=== PATIENT | female | born 1965 | race Caucasian/White ===

== ENCOUNTER 2020-07-13 08:08 | Outpatient (REF) | payer OTHER, SELFPAY ==
[2020-07-13 08:54] LABS: Hematocrit 41.1 % (37-47); Hemoglobin 13.2 g/dl (12.0-16.0)
[2020-07-13 09:15] LABS: Cholesterol 175 mg/dL; Glucose Fasting 80 mg/dL (60-99); HDL Cholesterol 82 mg/dL; LDL Cholesterol Calculated 81 mg/dl; Triglycerides 60 mg/dL
[2020-07-13 09:31] LABS: TSH reflex Free T4 2.42 uIU/mL (0.32-4.0)
[2020-07-13 10:03] LABS: Vitamin B12 398 pg/mL (200-900)
== END 2020-07-13 08:09 | disposition home or self-care (01) ==
LOC: HO.LAB 08:08
PROVIDERS: PCP Internal Medicine; Visit Provider Internal Medicine
DX: Z00.01 Encounter for general adult medical examination with abnormal findings (principal); R19.7 Diarrhea, unspecified; E03.9 Hypothyroidism, unspecified
CPT/HCPCS: 36415; 80061; 82607; 82947; 84443; 85014; 85018

== ENCOUNTER 2020-11-06 08:14 | Outpatient (REF) | payer OTHER, SELFPAY ==
[2020-11-09 15:12] LABS: HPV mRNA E6/E7 rflx Not Detected (Not Detected)
== END 2020-11-06 08:15 | disposition home or self-care (01) ==
LOC: HO.LAB 08:14
PROVIDERS: PCP Internal Medicine; Visit Provider Advanced Practice Midwife
DX: Z01.411 Encounter for gynecological examination (general) (routine) with abnormal findings (principal); Z11.51 Encounter for screening for human papillomavirus (HPV); N95.2 Postmenopausal atrophic vaginitis
CPT/HCPCS: 87624; 88142

== ENCOUNTER 2020-12-25 11:17 | Outpatient (REF) | payer OTHER, SELFPAY ==
--- NOTE | ~2020-12-25 | MM_ITS ---
EXAMINATION: MM SCREENING DIGITAL BREAST TOMOSYNTHESIS, BILATERAL CLINICAL INFORMATION: Screening. Asymptomatic. The lifetime risk of breast cancer based on the Tyrer-Cuzick Model is 6%. COMPARISON: Mammography: 07/07/2015 TECHNIQUE: Digital breast tomosynthesis is performed in both the craniocaudal and mediolateral oblique views along with computer-aided detection (CAD). Synthesized 2D images are generated from the tomosynthesis. FINDINGS: The breasts are heterogeneously dense, which may obscure small masses (ACR BI-RADS breast composition Category c). There are no significant masses, abnormal calcifications, or other abnormalities. The axilla and skin contours are unremarkable. No significant changes. MM/MM tomosynthesis screening BI IMPRESSION: No mammographic evidence of malignancy. ASSESSMENT: BI-RADS 1: Negative RECOMMENDATION: Routine annual mammography screening. This patient's information was entered into a reminder system with a target due date for their next mammogram.
== END 2020-12-25 11:18 | disposition home or self-care (01) ==
LOC: HO.MAMMO 11:17
PROVIDERS: Visit Provider Advanced Practice Midwife
DX: Z12.31 Encounter for screening mammogram for malignant neoplasm of breast (principal)
CPT/HCPCS: 77063; 77067

== ENCOUNTER 2021-08-03 07:34 | Outpatient (REF) | payer OTHER, SELFPAY ==
[2021-08-03 07:50] LABS: MANUAL DIFF FLAG NO
[2021-08-03 08:04] LABS: Basophils Percent Auto 0.6 % (0-2); Eosinophils Absolute Auto 0.1 X10*3/uL (0.0-0.4); Eosinophils Percent Auto 1.8 % (0-4); Hematocrit 39.3 % (37.0-47.0); Hemoglobin 12.8 g/dl (12.0-16.0); Imm Gran Abs Auto 0.02 X10*3/uL (0.00-0.03); Imm Gran Pct Auto 0.3 % (0.0-0.4); Lymphocytes Absolute Auto 1.7 X10*3/uL (1.2-4.9); Lymphocytes Percent Auto 24.5 % (20-40); Mean Corpuscular HGB Conc 32.6 g/dl (31.0-35.0); Mean Corpuscular Hemoglobin 29.4 pg (27.0-33.0); Mean Corpuscular Volume 90.3 fL (80.0-98.0); Mean Platelet Volume 9.7 fL (9.4-12.3); Monocytes Absolute Auto 0.6 X10*3/uL (0.1-1.2); Monocytes Percent Auto 8.3 % (2-11); Neutrophils Absolute Auto 4.4 x10*3/uL (2.0-8.3); Neutrophils Percent Auto 64.5 % (45-73); Platelet Count 173 X10*3/uL (160-400); Red Blood Count 4.35 X10*6/uL (4.20-5.50); Red Cell Distribution Width 12.2 % (11.0-16.0); White Blood Count 6.8 X10*3/uL (4.8-10.8)
[2021-08-03 08:35] LABS: Alanine Aminotransferase 13 U/L (0-31); Albumin Level 4.2 g/dL (3.5-5.0); Alkaline Phosphatase 92 U/L (39-117); Anion Gap 9 (12-20); Aspartate Amino Transferase 20 U/L (5-31); Bilirubin Total 0.5 mg/dL (0.0-1.0); Blood Urea Nitrogen 18 mg/dL (9-16); Calcium 9.9 mg/dL (8.4-10.2); Carbon Dioxide 31 mmol/L (22-29); Chloride 105 mmol/L (96-108); Cholesterol 153 mg/dL; Estimated Glomerular Filt Rate > 60; Glucose Fasting 98 mg/dL (60-99); HDL Cholesterol 69 mg/dL; LDL Cholesterol Calculated 74 mg/dl; Potassium 5.1 mmol/L (3.3-5.1); Sodium 140 mmol/L (135-145); Total Protein 6.9 g/dL (6.5-8.0); Triglycerides 50 mg/dL
[2021-08-03 08:48] LABS: TSH reflex Free T4 3.51 uIU/mL (0.32-4.0)
== END 2021-08-03 07:35 | disposition home or self-care (01) ==
LOC: HO.LAB 07:34
PROVIDERS: PCP Internal Medicine; Visit Provider Internal Medicine
DX: Z00.01 Encounter for general adult medical examination with abnormal findings (principal); E03.9 Hypothyroidism, unspecified; G43.909 Migraine, unspecified, not intractable, without status migrainosus
CPT/HCPCS: 36415; 80053; 80061; 84443; 85025

== ENCOUNTER 2022-02-22 08:06 | Outpatient (REF) | payer OTHER, SELFPAY ==
--- NOTE | ~2022-02-22 | MM_ITS ---
EXAMINATION: MM SCREENING DIGITAL BREAST TOMOSYNTHESIS, BILATERAL CLINICAL INFORMATION: Screening. Asymptomatic. The lifetime risk of breast cancer based on the Tyrer-Cuzick Model is 5%. COMPARISON: Mammography: 12/25/2020, 07/07/2015 TECHNIQUE: Digital breast tomosynthesis is performed in both the craniocaudal and mediolateral oblique views along with computer-aided detection (CAD). Synthesized 2D images are generated from the tomosynthesis. FINDINGS: The breasts are heterogeneously dense, which may obscure small masses (ACR BI-RADS breast composition Category c). There are no significant masses, abnormal calcifications, or other abnormalities. No architectural abnormality. The axilla are unremarkable. No significant changes from prior studies. MM/MM tomosynthesis screening BI IMPRESSION: No mammographic evidence of malignancy. ASSESSMENT: BI-RADS 1: Negative RECOMMENDATION: Routine annual mammography screening. This patient's information was entered into a reminder system with a target due date for their next mammogram.
== END 2022-02-22 08:07 | disposition home or self-care (01) ==
LOC: HO.MAMMO 08:06
PROVIDERS: Visit Provider Advanced Practice Midwife
DX: Z12.31 Encounter for screening mammogram for malignant neoplasm of breast (principal)
CPT/HCPCS: 77063; 77067

== ENCOUNTER 2022-03-22 08:03 | Outpatient (REF) | payer OTHER, SELFPAY ==
[2022-03-24 18:24] LABS: HPV mRNA E6/E7 rflx Not Detected (Not Detected)
== END 2022-03-22 08:04 | disposition home or self-care (01) ==
LOC: HO.LNP 08:03
PROVIDERS: PCP Internal Medicine; Visit Provider Advanced Practice Midwife
DX: Z01.419 Encounter for gynecological examination (general) (routine) without abnormal findings (principal); Z11.51 Encounter for screening for human papillomavirus (HPV); N95.1 Menopausal and female climacteric states
CPT/HCPCS: 87624; 88142

== ENCOUNTER 2022-07-29 08:45 | Outpatient (REF) | payer OTHER, SELFPAY ==
[2022-07-29 12:08] LABS: TSH reflex Free T4 2.01 uIU/mL (0.32-4.0)
[2022-07-29 12:12] LABS: Alanine Aminotransferase 18 U/L (0-31); Albumin Level 4.1 g/dL (3.5-5.0); Alkaline Phosphatase 120 U/L (39-117); Anion Gap 10 (12-20); Aspartate Amino Transferase 29 U/L (5-31); Bilirubin Total 0.4 mg/dL (0.0-1.0); Blood Urea Nitrogen 20 mg/dL (9-16); Calcium 9.2 mg/dL (8.4-10.2); Carbon Dioxide 26 mmol/L (22-29); Chloride 110 mmol/L (96-108); Estimated Glomerular Filt Rate > 60; Glucose Random 82 mg/dL (60-115); Potassium 4.3 mmol/L (3.3-5.1); Sodium 142 mmol/L (135-145); Total Protein 6.8 g/dL (6.5-8.0)
== END 2022-07-29 08:46 | disposition home or self-care (01) ==
LOC: HO.HMGCLDS 08:45
PROVIDERS: PCP Internal Medicine; Visit Provider Internal Medicine
DX: Z00.01 Encounter for general adult medical examination with abnormal findings (principal); E03.9 Hypothyroidism, unspecified; G43.909 Migraine, unspecified, not intractable, without status migrainosus
CPT/HCPCS: 36415; 80053; 84443

== ENCOUNTER 2023-03-21 07:27 | Outpatient (REF) | payer OTHER, SELFPAY ==
--- NOTE | ~2023-03-21 | MM_ITS ---
EXAMINATION: MM SCREENING DIGITAL BREAST TOMOSYNTHESIS, BILATERAL CLINICAL INFORMATION: Screening. Asymptomatic. COMPARISON: Mammography: This study is compared with prior exams dating back to 2018. TECHNIQUE: Digital breast tomosynthesis is performed in both the craniocaudal and mediolateral oblique views along with computer-aided detection (CAD). Synthesized 2D images are generated from the tomosynthesis. FINDINGS: The breasts are extremely dense, which lowers the sensitivity of mammography (ACR BI-RADS breast composition Category d). There are no significant masses, abnormal calcifications, or other abnormalities. MM/MM tomosynthesis screening BI IMPRESSION: No mammographic evidence of malignancy. ASSESSMENT: BI-RADS BI-RADS 1 - Negative RECOMMENDATION: Routine annual mammography screening. 1 year F/U This examination should not preclude the clinical evaluation of a suspicious palpable abnormality. This patient's information was entered into a reminder system with a target due date for their next mammogram.
== END 2023-03-21 07:28 | disposition home or self-care (01) ==
LOC: HO.MAMMO 07:27
PROVIDERS: PCP Internal Medicine; Visit Provider Advanced Practice Midwife
DX: Z12.31 Encounter for screening mammogram for malignant neoplasm of breast (principal)
CPT/HCPCS: 77063; 77067

== ENCOUNTER → 2023-03-21 07:45 | Outpatient (BNV) | payer OTHER, SELFPAY | PROVIDERS: PCP Internal Medicine; Visit Provider Radiology Diagnostic Radiology | DX: Z12.31 Encounter for screening mammogram for malignant neoplasm of breast (principal) | CPT/HCPCS: 77063; 77067 ==

== ENCOUNTER 2023-03-28 07:42 | Outpatient (AMB) | payer OTHER, SELFPAY ==
--- NOTE | 2023-03-28 07:51 | A.OFFVIS_ITS ---
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 She is doing well with no concerns. Using Estrace, wants to continue. Attempting to eat a healthy diet with calcium and vitamin D and stays active with exercise. Currently sexually active. Denies any vaginal dryness or irritation. Last pap smear; 2022. Last mammogram; pending. Colonoscopy is UTD. Denies any family history of breast, ovarian or colon cancer. [facility] Medical History IBS (irritable bowel syndrome) Hx of migraine headaches Hypothyroid Cecal volvulus Surgical History H/O inguinal hernia repair H/O knee surgery Family History Sister Multiple sclerosis Social History Housing: House Alcohol intake: current Alcohol intake frequency: a few times a week Patient Tobacco Use Status: Never used Tobacco e-Cigarette/Vaping Use: Never Used Current occupational status: employed Cognitive needs: No Hearing needs: No Vision needs: Yes Female Reproductive History Menstrual Age of Menarche: 10 Total pregnancies: 0 Date of last pap smear: 03/22/22 Date of Mammogram: 03/21/23 Review of Systems Const All systems reviewed & are unremarkable except as noted in HPI and below Reports as per HPI Eyes Reports no additional complaints ENT Reports no additional complaints Card Reports no additional complaints Resp Reports no additional complaints GI Reports as per HPI and Reports no additional complaints Reports as per HPI Musc Reports no additional complaints Skin/Breast Reports as per HPI Neuro Reports no additional complaints Psych Reports no additional complaints Endo Reports no additional complaints Tom/Lymph Reports no additional complaints Aller/Immun Reports no additional complaints Physical Exam Vital Signs: Last Vital Signs BP 106/60 03/28/23 08:00 BMI result Body Mass Index 17.0 Const General: cooperative, healthy appearing, no acute distress, well developed and alert Orientation/consciousness: patient oriented x3 HEENT Head: Yes normal to inspection Eyes General: appearance normal, both eyes and all related structures Neck Neck: Yes normal visual inspection Thyroid: Thyroid normal Chest Chest palpation & inspection: normal inspection of the chest and other (no puckering, dimpling, peau de orange, retraction, discharge, masses) Breast/axilla inspection: normal inspection of the breasts Breast/axilla palpation: normal palpation of the breasts Resp Effort & Inspection: normal respiratory effort GI Inspection: Yes normal to inspection Palpation (GI): Soft to palpation Rectal Exam - Female: deferred General: Yes bladder normal to palpation External Female Exam: normal external appearance and normal appearance of the urethra Speculum Exam - Vagina: normal appearance of the vagina, normal palpation and normal vaginal discharge Speculum Exam - Cervix: normal appearance of the cervix and normal palpation Bimanual exam- vagina & uterus: normal bimanual exam, normal palpation, uterine size normal, bladder normal to palpation, normal palpation and non-tender Bimanual Exam- Adnexa, other: no masses Skin General skin exam: no rashes or lesions noted Rashes: no rashes Neuro General: patient oriented x3 Cognition (Neuro): normal cognition Extrem General: Yes normal to inspection Psych Attitude: cooperative Thought process: Normal thought process present Assessment & Plan Assessment & Plan (1) Encounter for well woman exam with routine gynecological exam: Code(s): Z01.419 - Encounter for gynecological examination (general) (routine) without abnormal findings Plan Discussed: Current recommendations for pap smears per ASCCP guidelines. Breast awareness, periodic self breast exams and yearly mammogram. Maintain a healthy lifestyle, well balanced diet. Vaginal estrogen-risks/benefits, breast cancer risks/warnings. Contact the office with any postmenopausal bleeding. All of her questions and concerns were addressed to the best of my ability. RTO in 1 year for annual form tamper operator exam. This note is constructed using voice recognition software. While every effort has been made to ensure accuracy, safety sealer errors may have been included. Medications: Refilled estradiol 0.01%(0.1mg/gram) 1 g vaginal 2XW 90 days 42.5 grams 2RF Coding Level of Care Code Est Pt Prev Care 40-64y(39555) Diagnoses Encounter for well woman exam with routine gynecological exam Z01.419
[2023-03-28 08:00] VITALS: BP 106/60; BMI 17.0
== END 2023-03-28 08:27 | disposition home or self-care (01) ==
PROVIDERS: Visit Provider Advanced Practice Midwife
DX: Z01.419 Encounter for gynecological examination (general) (routine) without abnormal findings (principal)
CPT/HCPCS: 99396

== ENCOUNTER → 2023-03-28 07:42 | Outpatient (BNVA) | payer OTHER, SELFPAY | PROVIDERS: Visit Provider Advanced Practice Midwife ==

== ENCOUNTER 2023-06-06 15:22 | Outpatient (AMB) | payer OTHER, SELFPAY ==
[2023-06-06 15:59] VITALS: BP 100/60; PULSE 87; O2SAT 98
--- NOTE | 2023-06-06 15:59 | AM.OFFWIN_ITS ---
Intake Vital Signs 06/06/23 15:59 Height 5 ft 2 in BP 100/60 Blood Pressure Location Lt brachial Position Sitting Pulse 87 Pulse Source Pulse Oximeter Pulse Oximetry (%) 98 Oxygen Delivery Method Room Air Intake Visit Reasons: EP LT side injury due to fall Intake Note: pt is here for c/o left side pain due to fall yesterday Patient Tobacco Use Status: Never used Tobacco Allergies LOBSTER Allergy (Intermediate, Uncoded 06/06/23 15:59) HIVES-TACTILE EXPOSURE lobster juice Allergy (Unknown, Uncoded 06/06/23 15:59) hives Lobster juice Adverse Reaction (Unknown, Uncoded 06/06/23 15:59) hives Do you need a note to return to daycare/school/sports/work: No HPI HPI Comments History of Present Illness Details 57 y/o female patient who presents to hospital for special surgery walk in clinic for left sided flank pain after suffering a fall at home 2 days ago. Pt tripped on fell landing on the ground. Denies LOC. She has been wearing a corset which has been helping with pain relief. Denies SOB, CP or Wheezing. PFSH Medical History IBS (irritable bowel syndrome) Hx of migraine headaches Hypothyroid Cecal volvulus Surgical History H/O inguinal hernia repair H/O knee surgery Family History Sister Multiple sclerosis Social History Housing: House Alcohol intake: current Alcohol intake frequency: a few times a week Patient Tobacco Use Status: Never used Tobacco e-Cigarette/Vaping Use: Never Used Current occupational status: employed Cognitive needs: No Hearing needs: No Vision needs: Yes Female Reproductive History Menstrual Age of Menarche: 10 Review of Systems Const All systems reviewed & are unremarkable except as noted in HPI and below Physical Exam Vital Signs: Last Vital Signs Pulse 87 06/06/23 15:59 BP 100/60 06/06/23 15:59 Pulse Ox 98 06/06/23 15:59 Oxygen Delivery Method Room Air 06/06/23 15:59 Const General: comfortable and no acute distress Nutritional Appearance: malnourished Orientation/consciousness: patient oriented x3 Chest Chest palpation & inspection: tenderness rib (Between the 7th and 8th ribs left) GI Inspection: Yes normal to inspection Palpation (GI): Soft to palpation (Flat very thin, Able to palpate rib cage) and No hepatosplenomegaly present Auscultation: normal bowel sounds Neuro General: patient oriented x3 Assessment & Plan Assessment & Plan (1) Left flank pain: Code(s): R10.9 - Unspecified abdominal pain Plan: - IceHot - Acetaminophen or Ibuprofen for pain relief - May continue to wear the Corset - RTC if not better. Coding Level of Care Code Est Pt Level 3 (71916) Diagnoses Left flank pain R10.9 Time Spent (min) 15
== END 2023-06-06 16:38 | disposition home or self-care (01) ==
PROVIDERS: PCP Internal Medicine; Visit Provider Nurse Practitioner Family
DX: R10.9 Unspecified abdominal pain (principal)
CPT/HCPCS: 99213

== ENCOUNTER 2023-07-11 08:31 | Outpatient (AMB) | payer OTHER, SELFPAY ==
[2023-07-11 08:32] VITALS: BP 106/62; PULSE 72; O2SAT 100; BMI 17.3
--- NOTE | 2023-07-11 08:32 | A.OFFPC_ITS ---
Vital Signs 07/11/23 08:32 Height 5 ft 2 in Weight 94 lb 6 oz BMI 17.3 BP 106/62 Blood Pressure Location Rt brachial Position Sitting Pulse 72 Pulse Source Pulse Oximeter Pulse Oximetry (%) 100 Oxygen Delivery Method Room Air Intake Visit Reasons: PE Allergies LOBSTER Allergy (Intermediate, Uncoded 06/06/23 15:59) HIVES-TACTILE EXPOSURE lobster juice Allergy (Unknown, Uncoded 06/06/23 15:59) hives Lobster juice Adverse Reaction (Unknown, Uncoded 06/06/23 15:59) hives Medication List - Last Reconciled 07/11/23 by Elinor Ch MD caffeine 200 mg PO BID PRN cyclobenzaprine 5 mg PO ONCE PRN 30 days estradiol 0.01%(0.1mg/gram) 1 g vaginal 2XW 90 days ibuprofen 200 mg PO Q6H PRN levothyroxine (Euthyrox) 88 mcg PO DAILY 90 days sumatriptan succinate 25 mg PO DAILY PRN 30 days Tobacco use date assessed: 07/11/23 Dental Screening Dental Screen Date: 07/11/23 Did you have a dental visit in the last 12 months?: Yes Did you have a dental problem in the last 6 months where you did not have access to dental care?: No Was dental information given to patient?: Patient has dentist HPI PE HPI Details Patient is a 57-year-old female came in today for her yearly physical exam Patient want to talk about couple of problems today She says that at time she feels short of breath when she is active, she has a [place] family history of emphysema She would like to have a pulmonary function test, which I have ordered for her Patient has no history of smoking She also have slight malalignment of her knee joint with her hip joint Patient says that at times when she is walking her ankle gives in and she falls. She tells me that she has a history of recurrent falls in the past. She has never been evaluated by Orthopedic, I have placed a referral. Mammogram March of this year [facility], Pap smear and breast exam through them.? Colonoscopy September of 2019.? Due for labs order placed Continue levothyroxine 88 mcg for hypothyroidism Migraine headaches:? Stable with sumatriptan 25 mg as needed.? [facility] Medical History IBS (irritable bowel syndrome) Hx of migraine headaches Hypothyroid Cecal volvulus Surgical History H/O inguinal hernia repair H/O knee surgery Family History Sister Multiple sclerosis Social History Housing: House Alcohol intake: current Alcohol intake frequency: a few times a week Patient Tobacco Use Status: Never used Tobacco e-Cigarette/Vaping Use: Never Used service: No Current occupational status: employed Cognitive needs: No Hearing needs: No Vision needs: Yes Female Reproductive History Menstrual Age of Menarche: 10 Questionnaire PHQ-9 Over the last 2 weeks, how often have you been bothered by any of the following problems? 1. Little interest or pleasure in doing things: not at all 2. Feeling down, depressed, or hopeless: not at all 3. Trouble falling or staying asleep, or sleeping too much: not at all 4. Feeling tired or having little energy: not at all 5. Poor appetite or overeating: not at all 6. Feeling bad about yourself - or that you are a failure or have let yourself or your family down: not at all 7. Trouble concentrating on things, such as reading the newspaper or watching television: not at all 8. Moving or speaking so slowly that other people could have noticed. Or the opposite - being so fidgety or restless that you have been moving around a lot more than usual: not at all 9. Thoughts that you would be better off or of hurting yourself in some way: not at all Total score: 0 Depression Screening Interpretation: Negative Depression Screening Done: Yes 82816 - PHQ-9 Billing: Yes Source: Developed by Drs. John Yancey, Katerina Almaguer, Phil Brooks and colleagues, with an educational arleen from [employer]. Thrive Questionnaire Date Thrive assessed: 07/05/22 AUDIT C Alcohol Use Questionnaire (AUDIT-C) 1. How often do you have a drink containing alcohol?: Monthly or less 2. How many drinks containing alcohol do you have on a typical day when you are drinking?: 1 or 2 3. How often do you have six or more drinks on one occasion?: Never Total Score: 1 Score Reviewed/Action Taken: Yes SONIA-7 AMB Questionnaire SONIA-7 Date SONIA - 7 assessed: 07/05/22 Source: Developed by Drs. John Yancey, Katerina Almaguer, Phil Brooks and colleagues, with an educational arleen from [employer]. Review of Systems Const Denies chills, Denies fever(s) and Denies headache(s) Eyes Denies blurry vision ENT Denies headache(s), Denies nasal discharge, Denies nasal obstruction, Denies odynophagia and Denies sinus pain Card Denies chest pain at rest and Denies chest pain with activity Resp Denies cough and Denies hemoptysis GI Denies diarrhea, Denies odynophagia, Denies vomiting and Denies hematemesis Reports as per HPI Musc Denies abnormal gait Skin/Breast Reports as per HPI Neuro Denies Neuro-related abnormal movements, Denies Abnormal speech present, Denies abnormal gait, Denies headache(s) and Denies Sensory deficit (Neuro) Psych Denies mood swings and Denies paranoia Endo Reports as per HPI Tom/Lymph Reports as per HPI Aller/Immun Reports as per HPI Physical exam (Primary Care) Vital Signs: Last Vital Signs Pulse 72 07/11/23 08:32 BP 106/62 07/11/23 08:32 Pulse Ox 100 07/11/23 08:32 Oxygen Delivery Method Room Air 07/11/23 08:32 BMI result Body Mass Index 17.3 Tobacco/Smoking Status: Tobacco use Status Tobacco use date assessed 07/11/23 07/11/23 08:39 Patient Tobacco Use Status Never used Tobacco 07/11/23 08:38 e-Cigarette/Vaping Use Never Used 07/11/23 08:38 Depression Screening Interpretation: Negative Thrive Assessment: Date of Thrive Assessment Date Thrive assessed 07/05/22 07/11/23 08:38 Const General: cooperative, comfortable and no acute distress Orientation/consciousness: patient oriented x3 HENMT Head: Yes normocephalic and Yes atraumatic Eyes General: appearance normal, both eyes and all related structures Pupils: Equal, round and reactive pupils present EOM: EOMs intact bilaterally Neck Neck: Yes supple and No lymphadenopathy Thyroid: Thyroid normal Lymphatic: no lymphadenopathy noted Resp Effort & Inspection: normal respiratory effort and able to speak in complete sentences Auscultation: clear to auscultation bilaterally Cardio Heart sounds: S1 normal heart sound present and S2 normal heart sound present GI Palpation (GI): Soft to palpation and nontender Auscultation: normal bowel sounds General: Yes no CVA tenderness Back/Spine/Pelvis Back: no CVA tenderness Skin General skin exam: elasticity normal and turgor normal Neuro General: patient oriented x3 and gait normal Cranial nerves: Yes Equal, round and reactive pupils present Speech: No Abnormal speech present Sensory Exam: No Sensory deficit (Neuro) Coordination: tandem gait normal and Romberg test negative Extrem Other: Knee joint rotated inwards when patient is standing straight General: Yes normal exam except as noted and No edema Immunizations Boostrix Tdap 2.5 Lf unit-8 mcg-5 Lf/0.5 mL intramuscular syringe Performing Provider: Elinor Ch MD Performing Location: [facility] Administered by: Julio C Verdugo CMA on 07/11/23 09:02 Dose Route Admin Location Dispensed Lot Number Expiration Date NDC Glass Worker 0.5 mL IM Left Deltoid 0.5 mL [id number] 09/03/25 02593-800-30 [employer] VIS Given Date VIS Provided VIS Publication Date 07/11/23 Single Vaccine 20 Eligibility Eligibility Date Funding Source Not [facility] Eligible 07/11/23 Private Assessment and Plan Assessment & Plan (1) Encounter for general adult medical examination with abnormal findings: Code(s): Z00.01 - Encounter for general adult medical examination with abnormal findings (2) Ankle instability: Code(s): M25.373 - Other instability, unspecified ankle Qualifiers: Laterality: right Qualified Code(s): M25.371 - Other instability, right ankle (3) Shortness of breath: Code(s): R06.02 - Shortness of breath (4) Hypothyroidism: Code(s): E03.9 - Hypothyroidism, unspecified Qualifiers: Hypothyroidism type: other Qualified Code(s): E03.8 - Other specified hypothyroidism (5) Migraine headache: Code(s): G43.909 - Migraine, unspecified, not intractable, without status migrainosus Qualifiers: Intractability: intractable Migraine type: unspecified Status migrainosus presence: without status migrainosus Qualified Code(s): G43.919 - Migraine, unspecified, intractable, without status migrainosus (6) Family history of emphysema: Code(s): Z82.5 - Family history of asthma and other chronic lower respiratory diseases (7) Immunizations incomplete: Code(s): Z28.39 - Other underimmunization status Plan Patient is a 57-year-old female came in today for her yearly physical exam Patient want to talk about couple of problems today She says that at time she feels short of breath when she is active, she has a strong family history of emphysema She would like to have a pulmonary function test, which I have ordered for her Patient has no history of smoking She also have slight malalignment of her knee joint with her hip joint Patient says that at times when she is walking her ankle gives in and she falls. She tells me that she has a history of recurrent falls in the past. She has never been evaluated by Orthopedic, I have placed a referral. Mammogram March of this year [facility], Pap smear and breast exam through them.? Colonoscopy September of 2019.? Due for labs order placed Continue levothyroxine 88 mcg for hypothyroidism Migraine headaches:? Stable with sumatriptan 25 mg as needed.? Orders: Orders Complete Blood Count Auto Diff Today E03.9 - Hypothyroidism, unspecified, G43.909 - Migraine, unspecified, not intractable, without status migrainosus, Z00.01 - Encounter for general adult medical examination with abnormal findings Lipid Panel Today E03.9 - Hypothyroidism, unspecified, G43.909 - Migraine, unspecified, not intractable, without status migrainosus, Z00.01 - Encounter for general adult medical examination with abnormal findings PFT pulmonary function test Today R06.02 - Shortness of breath, Z82.5 - Family history of asthma and other chronic lower respiratory diseases TDaP Immunization Today Z23 - Encounter for immunization Comprehensive [place]. Panel Fast Today E03.9 - Hypothyroidism, unspecified, G43.909 - Migraine, unspecified, not intractable, without status migrainosus, Z00.01 - Encounter for general adult medical examination with abnormal findings TSH reflex Free T4 Today E03.9 - Hypothyroidism, unspecified, G43.909 - Migraine, unspecified, not intractable, without status migrainosus, Z00.01 - Encounter for general adult medical examination with abnormal findings Referrals Orthopedics Referral M25.373 - Other instability, unspecified ankle Coding Level of Care Code Est Pt Level 4 (17631) Est Pt Prev Care 40-64y(85231) Diagnoses Encounter for general adult medical examination with abnormal findings Z00.01 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
== END 2023-07-11 09:02 | disposition home or self-care (01) ==
PROVIDERS: Visit Provider Internal Medicine
DX: Z00.01 Encounter for general adult medical examination with abnormal findings (principal); M25.371 Other instability, right ankle; R06.02 Shortness of breath; Z23 Encounter for immunization; E03.8 Other specified hypothyroidism; G43.919 Migraine, unspecified, intractable, without status migrainosus; Z82.5 Family history of asthma and other chronic lower respiratory diseases; Z28.39 Other underimmunization status
CPT/HCPCS: 90471; 90715; 99214; 99396

== ENCOUNTER 2023-07-17 06:48 | Outpatient (REF) | payer OTHER, SELFPAY ==
[2023-07-17 07:05] LABS: MANUAL DIFF FLAG NO
[2023-07-17 07:15] LABS: Basophils Absolute Auto 0.1 X10*3/uL (0.0-0.2); Basophils Percent Auto 0.9 % (0-2); Eosinophils Absolute Auto 0.2 X10*3/uL (0.0-0.4); Eosinophils Percent Auto 2.9 % (0-4); Hematocrit 39.1 % (37.0-47.0); Hemoglobin 13.1 g/dl (12.0-16.0); Imm Gran Abs Auto 0.01 X10*3/uL (0.00-0.03); Imm Gran Pct Auto 0.2 % (0.0-0.4); Lymphocytes Absolute Auto 1.9 X10*3/uL (1.2-4.9); Lymphocytes Percent Auto 34.5 % (20-40); Mean Corpuscular HGB Conc 33.5 g/dl (31.0-35.0); Mean Corpuscular Hemoglobin 30.2 pg (27.0-33.0); Mean Corpuscular Volume 90.1 fL (80.0-98.0); Monocytes Absolute Auto 0.4 X10*3/uL (0.1-1.2); Monocytes Percent Auto 7.7 % (2-11); Neutrophils Percent Auto 53.8 % (45-73); Platelet Count 191 X10*3/uL (160-400); Red Blood Count 4.34 X10*6/uL (4.20-5.50); Red Cell Distribution Width 12.4 % (11.0-16.0); White Blood Count 5.6 X10*3/uL (4.8-10.8)
[2023-07-17 07:56] LABS: Alanine Aminotransferase 14 U/L (0-31); Albumin Level 4.2 g/dL (3.5-5.0); Alkaline Phosphatase 103 U/L (39-117); Anion Gap 12 (12-20); Aspartate Amino Transferase 23 U/L (5-31); Bilirubin Total 0.6 mg/dL (0.0-1.0); Blood Urea Nitrogen 18 mg/dL (9-16); Calcium 10.4 mg/dL (8.4-10.2); Carbon Dioxide 27 mmol/L (22-29); Chloride 105 mmol/L (96-108); Cholesterol 162 mg/dL (<200); Estimated Glomerular Filt Rate > 60; Glucose Fasting 86 mg/dL (60-99); HDL Cholesterol 78 mg/dL (>40); LDL Cholesterol Calculated 73 mg/dL (<100); Potassium 3.8 mmol/L (3.3-5.1); Sodium 140 mmol/L (135-145); Total Protein 7.4 g/dL (6.5-8.0); Triglycerides 58 mg/dL (<150)
== END 2023-07-17 06:49 | disposition home or self-care (01) ==
LOC: HO.LAB 06:48
PROVIDERS: PCP Internal Medicine; Visit Provider Internal Medicine
DX: Z00.01 Encounter for general adult medical examination with abnormal findings (principal); E03.9 Hypothyroidism, unspecified; G43.909 Migraine, unspecified, not intractable, without status migrainosus
CPT/HCPCS: 36415; 80053; 80061; 84439; 84443; 85025

== ENCOUNTER 2023-11-03 09:01 | Outpatient (AMB) | payer OTHER, SELFPAY ==
--- NOTE | 2023-11-03 09:15 | AM.OFFWIN_ITS ---
Intake Vital Signs 11/03/23 09:17 Height 5 ft 2 in Weight 93 lb BMI 17.0 BP 108/76 Blood Pressure Location Lt brachial Position Sitting Pulse 75 Pulse Source Pulse Oximeter Temp 98.7 F Temp Source Oral Pulse Oximetry (%) 98 Oxygen Delivery Method Room Air Intake Visit Reasons: EP- LT eye is swollen Intake Note: pt c/o LT eye swelling. Started Friday night Patient Tobacco Use Status: Never used Tobacco Allergies LOBSTER Allergy (Intermediate, Uncoded 11/03/23 09:15) HIVES-TACTILE EXPOSURE lobster juice Allergy (Unknown, Uncoded 11/03/23 09:15) hives Lobster juice Adverse Reaction (Unknown, Uncoded 11/03/23 09:15) hives Do you need a note to return to daycare/school/sports/work: No HPI EP- LT eye is swollen HPI Details This note is constructed using voice recognition software. While every effort has been made to ensure accuracy, media relations coordinator errors may have been included. The patient is a 58 year old female who presents to the clinic today with Left eye swelling onset Friday. She notes she had been cleaning out her parent's house recently, and she could have had exposure to some dust, so when she started with some red in a mild amount of pain behind the eye she started with ibuprofen. Ibuprofen did not seem to do the trick other than completely resolving the pain, so when the swelling got worse she tried Benadryl. That did not do anything, so she presents today as she has noticed that the redness and swelling around her left eye has gotten worse. She denies pain with movement, the previous pain has completely resolve. The area is not itchy, she reports that it is not having any impact on her vision other than that she can see the swelling part of her face in her visual field. She is not having any discharge other than tears. She has a glasses wear. She denies fever, chills, cough, shortness of breath or any other URI symptoms. She has been using cold compresses with little effect. [facility] Medical History IBS (irritable bowel syndrome) Hx of migraine headaches Hypothyroid Cecal volvulus Surgical History H/O inguinal hernia repair H/O knee surgery Family History Sister Multiple sclerosis Social History Housing: House Alcohol intake: current Alcohol intake frequency: a few times a week Patient Tobacco Use Status: Never used Tobacco e-Cigarette/Vaping Use: Never Used service: No Current occupational status: employed Cognitive needs: No Hearing needs: No Vision needs: Yes Female Reproductive History Menstrual Age of Menarche: 10 Review of Systems Const All systems reviewed & are unremarkable except as noted in HPI and below Physical Exam Vital Signs: Last Vital Signs Temp 98.7 F 11/03/23 09:17 Pulse 75 11/03/23 09:17 BP 108/76 11/03/23 09:17 Pulse Ox 98 11/03/23 09:17 Oxygen Delivery Method Room Air 11/03/23 09:17 BMI result Body Mass Index 17.0 Const General: cooperative, healthy appearing, comfortable, no acute distress and alert Orientation/consciousness: patient oriented x3 Limitations: no limitations Eyes Visual Mojica: normal visual mojica by confrontation Alignment and Position: alignment normal Periorbital: periorbital findings abnormal left periorbital swelling and periorbital erythema Conjunctivae: conjunctivae normal Sclerae: sclerae normal Pupils: Equal, round and reactive pupils present EOM: EOMs intact bilaterally Neuro General: patient oriented x3 Cranial nerves: Yes Equal, round and reactive pupils present Psych Appearance: grossly normal Mental Status: mental status grossly normal Speech and movement: Normal speech and movement present Affect: normal affect Assessment & Plan Assessment & Plan (1) Preseptal cellulitis of left eye: Code(s): L03.213 - Periorbital cellulitis Plan: Given patient's stability, elected to treat outpatient. Augmentin sent to requested pharmacy. Advised patient to present to the emergency room should she develop pain on eye movement, any visual disturbance, or worsening symptoms despite treatment with antibiotics. She may continue with cool compresses as this may help with some of the symptoms that she is present today. Plan See above for full details and plan. Medications: New amoxicillin-pot clavulanate 875-125 mg 1 tab PO BID 10 days 20 tabs 0RF Coding Level of Care Code Est Pt Level 4 (99218) Diagnoses Preseptal cellulitis of left eye L03.213
[2023-11-03 09:17] VITALS: BP 108/76; PULSE 75; TEMP 37.1; O2SAT 98; BMI 17.0
== END 2023-11-03 09:50 | disposition home or self-care (01) ==
PROVIDERS: PCP Internal Medicine; Visit Provider Registered Nurse
DX: L03.213 Periorbital cellulitis (principal)
CPT/HCPCS: 99214

== ENCOUNTER 2023-11-11 09:38 | Emergency (ER) | payer OTHER, SELFPAY ==
[2023-11-11 10:01] VITALS: BP 145/76; PULSE 76; RESP 14; TEMP 37; O2SAT 99; BMI 17.7
[2023-11-11 12:00] VITALS: BP 127/65; PULSE 75; RESP 20; TEMP 37.1; O2SAT 99
--- NOTE | 2023-11-11 12:40 | ED.GENADULT ---
HPI - General Adult General Chief complaint: General Medical Stated complaint: Facial numbness Time Seen by Provider: 11/11/23 12:27 Source: patient Mode of arrival: ambulatory Limitations: no limitations History of Present Illness ED Provider: Dr. Cathleen Shah HPI narrative: Patient comes to the emergency room complaining of a cold sensation in the upper lift on the left side. Patient states that this happened in the middle of the night, did not think much of it and then went to sleep. This sensation disappeared. Patient states she has no pain, no mouth droop, no speech changes no neurological deficits. Patient states that her made her come to the emergency room to get checked out. Related Data Home Medications ?Medication ?Instructions ?Recorded ?Confirmed ibuprofen 100 mg tablet 200 mg PO Q6H PRN 06/27/20 07/11/23 caffeine 200 mg tablet 200 mg PO BID PRN 03/22/22 07/11/23 Previous Rx's ?Medication ?Instructions ?Recorded estradiol 0.01% (0.1 mg/gram) 1 g vaginal 2XW 90 days #42.5 grams 03/28/23 vaginal cream cyclobenzaprine 5 mg tablet 5 mg PO ONCE PRN muscle spasm 30 10/07/23 days #30 tabs levothyroxine 100 mcg tablet 100 mcg PO DAILY 90 days #90 tabs 10/07/23 sumatriptan succinate 25 mg tablet 25 mg PO DAILY PRN headache 30 10/09/23 days #10 tabs amoxicillin 875 mg-potassium 1 tab PO BID 10 days #20 tabs 11/03/23 clavulanate 125 mg tablet Allergies Allergy/AdvReac Type Severity Reaction Status Date / Time LOBSTER Allergy Intermediate HIVES-TACTILE Uncoded 11/11/23 10:05 EXPOSURE lobster juice Allergy Unknown hives Uncoded 11/11/23 10:05 Lobster juice AdvReac Unknown hives Uncoded 11/11/23 10:05 Review of Systems Review of Systems: Constitutional : No Weight loss, No Fever, No Chills, No Night Sweats, No Fatigue, No Malaise ENT/Mouth : No Hearing loss, No Ear Pain, No Nasal Congestion, No Sinus Pain, No Hoarseness, No sore throat, No Rhinorrhea, No Swallowing Difficulty Eyes: No Eye Pain, No Swelling, No Redness, No Foreign Body, No Discharge, No Vision Changes Cardiovascular : No Chest Pain, No SOB, No Dyspnea on Exertion, No Orthopnea, No Edema, No Palpitations Respiratory : No Cough, No Sputum, No Wheezing, No Smoke Exposure, No Dyspnea Gastrointestinal : No Nausea, No Vomiting, No Diarrhea, No Constipation, No abdominal Pain, No Hematochezia, No Melena Genitourinary : no irregular bleeding, No Dysuria, No Urinary Frequency, No Hematuria, No Urinary Incontinence, No Urgency, No Flank Pain, No Urinary Flow Changes, No Hesitancy Musculoskeletal : No joint pain, No Myalgias, No Joint Swelling Skin : No Skin Lesions, No rash Neuro : No Weakness, No Numbness, mild left upper lip Paresthesias, No Loss of Consciousness, No Dizziness, No Headache Psych : No Anxiety/Panic, No Depression, No SI/HI/AH/VH, No Social Issues, Heme/Lymph: No Bruising, No Bleeding,No Lymphadenopathy Endocrine : No Polyuria, No Polydipsia, No Temperature Intolerance PMFSH Past Medical History Medical History IBS (irritable bowel syndrome) Hx of migraine headaches Hypothyroid Cecal volvulus Surgical History H/O inguinal hernia repair H/O knee surgery Family History Family History Sister Multiple sclerosis Social History Social History Housing: House Alcohol intake: current Alcohol intake frequency: a few times a week Patient Tobacco Use Status: Never used Tobacco e-Cigarette/Vaping Use: Never Used Advance Directives: Yes Advance Directives Information Provided: Yes Advance Directives on File: No Do you have a plan to hurt others: No Plan service: No Current occupational status: employed Cognitive needs: No Hearing needs: No Vision needs: Yes Physical Exam ED Vital Signs: Vital Signs - 24 hr 11/11/23 10:01 11/11/23 12:00 Temperature 98.6 F 98.8 F Pulse Rate 76 75 Respiratory Rate 14 20 Blood Pressure 145/76 H 127/65 Pulse Oximetry 99 99 Oxygen Delivery Method Room Air Room Air BMI result Body Mass Index 17.7 Const Other: Appearance: Alert. Oriented X3. No acute distress. Eyes: Pupils equal, round and reactive to light. ENT: Pharynx normal. Neck: Normal inspection. Neck supple. No lymph nodes noted. No crepitus CVS: Normal heart rate and rhythm. Pulses normal. Normal S1 and S2 Respiratory: No respiratory distress. Breath sounds normal. No Wheezing. No rales Abdomen: Soft and nontender. No rigidity. No distention. Skin: Skin warm and dry. Normal skin color. Normal skin turgor. Extremities: No lower extremity edema. No Lacerations. No Rash Neuro: Oriented X 3. No motor deficit. No sensory deficit. Moving all extremities. No slurred speech. CN 2 through 12 grossly intact Psych: calm, cooperative, normal affect NIH Stroke Scale Internal: Initial- Upon Arrival Level of Consciousness: Alert Level of Consciousness Questions: Answers both questions correctly Level of Consciousness Commands: Performs both tasks correctly Best Gaze: Normal Visual: No visual loss Facial Palsy: Normal Motor Arm (Right): No drift Motor Arm (Left): No drift Motor Leg (Right): No drift Motor Leg (Left): No drift Limb Ataxia: Absent Sensory: Normal Best Language: No aphasia Dysarthia: Normal Extinction and Inattention: No abnormality Score: 0 Medical Decision Making Medical Decision Making MDM Narrative: -patient states that she is asymptomatic. Patient no longer has a at upper lip coolness sensation. -NIH score is negative -patient states that she does have history of migraines but has not had a headache. -physical exam is completely normal, no neurological deficits -I reviewed patient's labs from July of 2023, all stable, perfect lipid panel -CT scan was offered, patient declined. -chances of this being a stroke/TIA are very low, patient agrees. -I discussed with the patient that if she continues having recurrent symptoms, she needs to return to the emergency room and then we will do the CT scan, patient agrees with plan. Differential Diagnosis Differential Diagnoses: The differential diagnosis associated with the presentation includes (Paresthesia, TIA, CVA) Discharge Plan Discharge Clinical Impression: Paresthesia Patient Disposition: Home, Self-Care Instructions: Paresthesia (ED) Additional Instructions: Please follow-up with your primary care physician tomorrow. If you have any worsening or new symptoms, please return to the emergency room or call 911 Prescriptions: No Action cyclobenzaprine 5 mg tablet 5 mg PO ONCE PRN (Reason: muscle spasm) 30 Days Qty: 30 0RF levothyroxine 100 mcg tablet 100 mcg PO DAILY 90 Days Qty: 90 0RF sumatriptan succinate 25 mg tablet 25 mg PO DAILY PRN (Reason: headache) 30 Days Qty: 10 0RF ibuprofen 100 mg tablet 200 mg PO Q6H PRN amoxicillin-pot clavulanate 875-125 mg tablet 1 tab PO BID 10 Days Qty: 20 0RF estradiol 0.01 % (0.1 mg/gram) cream 1 g vaginal 2XW 90 Days Qty: 42.5 2RF caffeine 200 mg tablet 200 mg PO BID PRN Print Language: Bel[place]ian
[2023-11-11 13:03] VITALS: BP 127/65; PULSE 75; RESP 20; TEMP 37.1; O2SAT 99
== END 2023-11-11 13:04 | disposition home or self-care (01) ==
PROVIDERS: Emergency Provider Emergency Medicine; PCP Internal Medicine
DX: R20.0 Anesthesia of skin (principal); Z79.899 Other long term (current) drug therapy
CPT/HCPCS: 99283

== ENCOUNTER 2024-03-26 07:31 | Outpatient (REF) | payer OTHER, SELFPAY | END 2024-03-26 07:32 | disposition home or self-care (01) | LOC: HO.MAMMO 07:31 | PROVIDERS: PCP Internal Medicine; Visit Provider Internal Medicine | DX: Z12.31 Encounter for screening mammogram for malignant neoplasm of breast (principal) | CPT/HCPCS: 77063; 77067 ==

== ENCOUNTER → 2024-03-26 07:45 | Outpatient (BNV) | payer OTHER, SELFPAY | PROVIDERS: PCP Internal Medicine; Visit Provider Internal Medicine | DX: Z12.31 Encounter for screening mammogram for malignant neoplasm of breast (principal) | CPT/HCPCS: 77063; 77067 ==

== ENCOUNTER 2024-07-28 06:39 | Outpatient (REF) | payer OTHER, SELFPAY ==
[2024-07-28 08:14] LABS: TSH reflex Free T4 13.76 uIU/mL (0.32-4.0)
[2024-07-28 09:09] LABS: Free T4 (Free Thyroxine) 1.24 ng/dL (0.71-1.85)
== END 2024-07-28 06:40 | disposition home or self-care (01) ==
LOC: HO.LAB 06:39
PROVIDERS: PCP Internal Medicine; Visit Provider Internal Medicine
DX: E03.8 Other specified hypothyroidism (principal)
CPT/HCPCS: 36415; 84439; 84443

== ENCOUNTER 2024-07-30 10:08 | Outpatient (REF) | payer OTHER, SELFPAY ==
--- NOTE | ~2024-07-30 | XR_ITS ---
EXAMINATION: XR CHEST 2 VIEWS HISTORY: Z82.5 - Family history of asthma and other chronic lower respiratory disease... COMPARISON: There are no prior studies for comparison. FINDINGS: PA and lateral views of the chest are submitted. The lungs are hyperinflated, consistent with pneumonia. There is a nodular infiltrate in the right upper lobe. The left lung is clear. There is no pleural effusion, pneumothorax, or pulmonary vascular congestion. The heart is normal in size. The bones are intact. XR/XR chest 2V IMPRESSION: COPD. Nodular infiltrate in the right upper lobe. If there is suspicion for pneumonia. A follow-up examination after treatment is recommended to document resolution. Otherwise, further evaluation with chest CT is recommended. Findings were sent to Dr. Ch on 07/30/2024 at 12:30 PM by secure text message. Electronically signed by: John Almazan MD 07/30/2024 12:31 PM EDT
== END 2024-07-30 10:09 | disposition home or self-care (01) ==
LOC: HO.HMGCX 10:08
PROVIDERS: PCP Internal Medicine; Visit Provider Internal Medicine
DX: Z00.01 Encounter for general adult medical examination with abnormal findings (principal); J44.9 Chronic obstructive pulmonary disease, unspecified; R91.1 Solitary pulmonary nodule; E03.8 Other specified hypothyroidism; G43.919 Migraine, unspecified, intractable, without status migrainosus; Z82.5 Family history of asthma and other chronic lower respiratory diseases
CPT/HCPCS: 71046; 96127

== ENCOUNTER 2024-07-30 10:08 | Outpatient (AMB) | payer OTHER, SELFPAY ==
--- NOTE | 2024-07-30 10:13 | MHC.PC.OV ---
Vital Signs 07/30/24 10:16 Height 5 ft 2 in Weight 94 lb 4 oz BMI 17.2 BP 100/68 Blood Pressure Location Rt brachial Position Sitting Respiration 14 Pulse 70 Pulse Source Pulse Oximeter Temp 98.4 F Temp Source Oral Pulse Oximetry (%) 97 Oxygen Delivery Method Room Air Intake Visit Reasons: Annual PE Allergies LOBSTER Allergy (Intermediate, Uncoded 07/30/24 10:17) HIVES-TACTILE EXPOSURE lobster juice Allergy (Unknown, Uncoded 07/30/24 10:17) hives Lobster juice Adverse Reaction (Unknown, Uncoded 07/30/24 10:17) hives Medication List - Last Reconciled 07/30/24 by Elinor Ch MD caffeine 100 mg PO BID PRN cyclobenzaprine 5 mg PO ONCE PRN 30 days estradiol 0.01%(0.1mg/gram) 1 g vaginal 2XW 90 days ibuprofen 100 mg PO Q6H PRN levothyroxine 100 mcg PO DAILY 90 days sumatriptan succinate 25 mg PO DAILY PRN 30 days Tobacco use date assessed: 07/30/24 Dental Screening Dental Screen Date: 07/30/24 Did you have a dental visit in the last 12 months?: No Did you have a dental problem in the last 6 months where you did not have access to dental care?: No Was dental information given to patient?: Patient has dentist HPI Annual PE HPI Details History of Present Illness - The patient is a 59-year-old female presenting with an annual routine physical examination. - Reports developing allergies recently, with symptoms of difficulty breathing and coughing when near specific students; no prior history of allergies mentioned. 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 - Had normal results from colonoscopy in 2019, and advised to return in five years; experiences significant pain due to air collection from colon twisting. - Reports fibrocystic breast changes which are monitored regularly through mammograms. - right Shoulder injury reported years ago, still gets sore off and on - Denies headache issues currently but had history of migraine headaches. - Family history significant for emphysema, expressing concern due to mother's prolonged struggle with the condition. - Previous glaucoma screenings twice, with normal results each time. - History of living in damp conditions, potentially impacting lung status. Health Maintenance - Routine colonoscopy performed in 2019, returned normal. Do not want to pursue any further - Mammogram up to date as of March this year. - Previous glaucoma screening tests twice came back normal. - Engages in physical activity due to profession, indicating an active lifestyle. - Encouraged to undergo pulmonary function test due to family history of emphysema. Patient Instructions - Encourage use of a mask to prevent inhalation of allergens. - Follow dietary and lifestyle guidelines provided to manage cholesterol levels. - Rest the shoulder to prevent exacerbating pain. - Undergo the ordered pulmonary function test and chest X-ray. - Attend a blood test following fasting instructions. - Engage in safe physical activity. Patient chest x-ray done today showed signs of COPD and a single nodule CT scan ordered and pulmonary referral placed Review of Systems - General: No fever no chills - Neurological: No headaches no dizziness - Ear nose throat: No sore throat no hearing difficulty no ear pain - Cardiovascular: No syncope, no chest pain, no palpitations - Gastrointestinal: No nausea vomiting or diarrhea - Endocrine: No polyuria polydipsia no heat intolerance - Genitourinary: No dysuria - Skin: No new complaints Physical Exam General: Cooperative, healthy appearing, comfortable, no acute distress Orientation: Patient oriented x3 Head: Normal to inspection Ears: Within normal limit visually Nose: Normal external nose present Face and sinus: Normal facial exam Eyes: Appearance normal, extraocular movement intact pupils reactive Neck: Normal visual inspection and supple Respiratory: Normal respiratory effort, but patient reports difficulty breathing and coughing when near certain triggers. Clear to auscultation, no stridor Cardiovascular: S1 and S2 RRR Breast exam through OBGYN GI: Normal to inspection. Soft to palpation and nontender Skin: Turgor normal, no acute findings Neuro: Patient oriented x3, motor sensory intact, balance intact, tandem pass Extremities: Normal to inspection, range of motion intact [facility] Medical History IBS (irritable bowel syndrome) Hx of migraine headaches Hypothyroid Cecal volvulus Surgical History H/O inguinal hernia repair H/O knee surgery Family History Sister Multiple sclerosis Social History Housing: House Alcohol intake: current Alcohol intake frequency: a few times a week Patient Tobacco Use Status: Never used Tobacco e-Cigarette/Vaping Use: Never Used service: No Current occupational status: employed Cognitive needs: No Hearing needs: No Vision needs: Yes Female Reproductive History Menstrual Age of Menarche: 10 Questionnaire PHQ-9 Over the last 2 weeks, how often have you been bothered by any of the following problems? 1. Little interest or pleasure in doing things: not at all 2. Feeling down, depressed, or hopeless: not at all 3. Trouble falling or staying asleep, or sleeping too much: not at all 4. Feeling tired or having little energy: not at all 5. Poor appetite or overeating: not at all 6. Feeling bad about yourself - or that you are a failure or have let yourself or your family down: not at all 7. Trouble concentrating on things, such as reading the newspaper or watching television: not at all 8. Moving or speaking so slowly that other people could have noticed. Or the opposite - being so fidgety or restless that you have been moving around a lot more than usual: not at all 9. Thoughts that you would be better off or of hurting yourself in some way: not at all Total score: 0 Depression Screening Interpretation: Negative Depression Screening Done: Yes 68006 - PHQ-9 Billing: Yes Source: Developed by Drs. John Yancey, Katerina Almaguer, Phil Brooks and colleagues, with an educational arleen from [employer]. Thrive Questionnaire Date Thrive assessed: 07/30/24 I am a: Patient What is your living situation today?: I have a steady place to live Within the past 12 months, did the food you bought not last and you didn't have the money to get more?: Never true Within the past 12 months, did you worry whether your food would run out before you got money to buy more?: Never true Do you have trouble paying for medicines?: No Do you have trouble getting transportation to medical appointments?: No Do you have trouble paying your heating and electricity bill?: No Do you have trouble taking care of your child, family member or friend?: No Do you have trouble with day-to-day activities such as bathing, preparing meals, shopping, managing finances, etc.?: No Are you currently unemployed and looking for a job?: No Are you interested in more education?: No Please select the resources that you would like help with: None Currently or been in a relationship where the following occur: No concerns reported THRIVE Score: 0 AUDIT C Alcohol Use Questionnaire (AUDIT-C) 1. How often do you have a drink containing alcohol?: 2-4 times a month 2. How many drinks containing alcohol do you have on a typical day when you are drinking?: 1 or 2 3. How often do you have six or more drinks on one occasion?: Never Total Score: 2 SONIA-7 AMB Questionnaire SONIA-7 Date SONIA - 7 assessed: 07/30/24 Feeling nervous, anxious, or on edge: 0 = Not at all Not being able to stop or control worryin = Not at all Worrying too much about different things: 0 = Not at all Trouble relaxin = Not at all Being so restless that it is hard to sit still: 0 = Not at all Becoming easily annoyed or irritable: 0 = Not at all Feeling afraid as if something awful might happen: 0 = Not at all Total SONIA-7 score (0-4 normal; 5-9 mild; 10-14 moderate; 15-21 severe): 0 Source: Developed by Drs. John Yancey, Katerina Almaguer, Phil Brooks and colleagues, with an educational arleen from [employer]. Physical exam (Primary Care) Vital Signs: Last Vital Signs Temp 98.4 F 07/30/24 10:16 Pulse 70 07/30/24 10:16 Resp 14 07/30/24 10:16 BP 100/68 07/30/24 10:16 Pulse Ox 97 07/30/24 10:16 Oxygen Delivery Method Room Air 07/30/24 10:16 BMI result Body Mass Index 17.2 Tobacco/Smoking Status: Tobacco use Status Tobacco use date assessed 07/30/24 07/30/24 10:17 Patient Tobacco Use Status Never used Tobacco 07/30/24 10:15 e-Cigarette/Vaping Use Never Used 07/30/24 10:15 PHQ-9: PHQ-9 Score PHQ-9: Total score 0 07/30/24 10:47 Depression Screening Interpretation: Negative Thrive Assessment: Date of Thrive Assessment Date Thrive assessed 07/30/24 07/30/24 10:21 Currently or been in a relationship where the following occur: No concerns reported Coding Level of Care Code Est Pt Level 4 (62628) Est Pt Prev Care 40-64y(95816) Diagnoses Encounter for general adult medical examination with abnormal findings Z00.01 Chronic obstructive pulmonary disease, unspecified COPD type J44.9 COPD type: unspecified COPD Lung nodule, solitary R91.1 Other specified hypothyroidism E03.8 Hypothyroidism type: other Intractable migraine without status migrainosus, unspecified migraine type G43.919 Intractability: intractable Migraine type: unspecified Status migrainosus presence: without status migrainosus Family history of emphysema Z82.5 Additional Codes PHQ-9 - 49625 - PHQ-9 Billing: Yes ([id number]) Assessment & Plan Assessment & Plan (1) Encounter for general adult medical examination with abnormal findings: Code(s): Z00.01 - Encounter for general adult medical examination with abnormal findings Category: Medical (2) COPD (chronic obstructive pulmonary disease): Code(s): J44.9 - Chronic obstructive pulmonary disease, unspecified Category: Medical Qualifiers: COPD type: unspecified COPD Qualified Code(s): J44.9 - Chronic obstructive pulmonary disease, unspecified (3) Lung nodule, solitary: Code(s): R91.1 - Solitary pulmonary nodule Category: Medical (4) Hypothyroidism: Code(s): E03.9 - Hypothyroidism, unspecified Category: Medical Qualifiers: Hypothyroidism type: other Qualified Code(s): E03.8 - Other specified hypothyroidism (5) Migraine headache: Code(s): G43.909 - Migraine, unspecified, not intractable, without status migrainosus Category: Medical Qualifiers: Intractability: intractable Migraine type: unspecified Status migrainosus presence: without status migrainosus Qualified Code(s): G43.919 - Migraine, unspecified, intractable, without status migrainosus (6) Family history of emphysema: Code(s): Z82.5 - Family history of asthma and other chronic lower respiratory diseases Category: Medical Plan History of Present Illness - The patient is a 59-year-old female presenting with an annual routine physical examination. - Reports developing allergies recently, with symptoms of difficulty breathing and coughing when near specific students; no prior history of allergies mentioned. 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 - Had normal results from colonoscopy in 2019, and advised to return in five years; experiences significant pain due to air collection from colon twisting. - Reports fibrocystic breast changes which are monitored regularly through mammograms. - right Shoulder injury reported years ago, still gets sore off and on - Denies headache issues currently but had history of migraine headaches. - Family history significant for emphysema, expressing concern due to mother's prolonged struggle with the condition. - Previous glaucoma screenings twice, with normal results each time. - History of living in damp conditions, potentially impacting lung status. Health Maintenance - Routine colonoscopy performed in 2019, returned normal. Do not want to pursue any further - Mammogram up to date as of March this year. - Previous glaucoma screening tests twice came back normal. - Engages in physical activity due to profession, indicating an active lifestyle. - Encouraged to undergo pulmonary function test due to family history of emphysema. Patient Instructions - Encourage use of a mask to prevent inhalation of allergens. - Follow dietary and lifestyle guidelines provided to manage cholesterol levels. - Rest the shoulder to prevent exacerbating pain. - Undergo the ordered pulmonary function test and chest X-ray. - Attend a blood test following fasting instructions. - Engage in safe physical activity. Patient chest x-ray done today showed signs of COPD and a single nodule CT scan ordered and pulmonary referral placed Orders: Orders Complete Blood Count Auto Diff 6 Weeks E03.8 - Other specified hypothyroidism, G43.919 - Migraine, unspecified, intractable, without status migrainosus, Z00.01 - Encounter for general adult medical examination with abnormal findings Lipid Panel 6 Weeks E03.8 - Other specified hypothyroidism, G43.919 - Migraine, unspecified, intractable, without status migrainosus, Z00.01 - Encounter for general adult medical examination with abnormal findings Comprehensive [place]. Panel Fast 6 Weeks E03.8 - Other specified hypothyroidism, G43.919 - Migraine, unspecified, intractable, without status migrainosus, Z00.01 - Encounter for general adult medical examination with abnormal findings Vitamin D 25-OH (D2 and D3) 6 Weeks E03.8 - Other specified hypothyroidism, G43.919 - Migraine, unspecified, intractable, without status migrainosus, Z00.01 - Encounter for general adult medical examination with abnormal findings Vitamin B12 6 Weeks E03.8 - Other specified hypothyroidism, G43.919 - Migraine, unspecified, intractable, without status migrainosus, Z00.01 - Encounter for general adult medical examination with abnormal findings TSH reflex Free T4 6 Weeks E03.8 - Other specified hypothyroidism, G43.919 - Migraine, unspecified, intractable, without status migrainosus, Z00.01 - Encounter for general adult medical examination with abnormal findings XR chest 2V Today Z82.5 - Family history of asthma and other chronic lower respiratory diseases PFT pulmonary function test Today Z82.5 - Family history of asthma and other chronic lower respiratory diseases Referrals Cologuard Test Z12.11 - Encounter for screening for malignant neoplasm of colon, Z12.12 - Encounter for screening for malignant neoplasm of rectum
[2024-07-30 10:16] VITALS: BP 100/68; PULSE 70; RESP 14; TEMP 36.9; O2SAT 97; BMI 17.2
== END 2024-07-30 10:42 | disposition home or self-care (01) ==
LOC: HO.HMCC 10:09
PROVIDERS: PCP Internal Medicine; Visit Provider Internal Medicine
DX: Z00.01 Encounter for general adult medical examination with abnormal findings (principal); J44.9 Chronic obstructive pulmonary disease, unspecified; R91.1 Solitary pulmonary nodule; E03.8 Other specified hypothyroidism; G43.919 Migraine, unspecified, intractable, without status migrainosus; Z82.5 Family history of asthma and other chronic lower respiratory diseases

== ENCOUNTER → 2024-07-30 10:55 | Outpatient (BNV) | payer OTHER, SELFPAY | PROVIDERS: PCP Internal Medicine; Visit Provider Radiology Diagnostic Radiology | DX: J44.9 Chronic obstructive pulmonary disease, unspecified (principal); R91.1 Solitary pulmonary nodule | CPT/HCPCS: 71046 ==

== ENCOUNTER 2024-09-06 08:47 | Outpatient (REF) | payer OTHER, SELFPAY ==
--- NOTE | ~2024-09-06 | CT_ITS ---
CLINICAL HISTORY: R91.1 - Solitary pulmonary nodule CT chest with contrast Comparison: CR/SR - XR CHEST 2V - 07/30/24 11:06 EDT Findings: The heart size is normal. The visualized thyroid and mediastinum are unremarkable. There are clusters of nodules present within the bilateral upper lobes, lingula, right middle lobe and right lower lobe. Findings are most pronounced at the level of the right upper lobe. Nodules measure up to 8 mm in size (right upper lobe series 4, image 67). Solitary nodule within the left lower lobe measuring 6 mm in size (series 4, image 110 ). No consolidation or pleural effusion. The visualized upper abdomen is unremarkable. The bones are intact. IMPRESSION: There are numerous nodules within the bilateral lungs with an appearance most suggestive of an inflammatory process. Recommend CT follow-up in 3-6 months. This document has been electronically signed by: Colette Perdomo MD on 09/07/2024 15:32:15
[2024-09-06] MEDS: iohexoL 350 MG/ML 100 ML INFUS..BTL 65 ML IV (09:32)
[2024-09-06 11:26] LABS: Creatinine POC 0.8 mg/dL (0.5-1.4); GFR POC > 60
== END 2024-09-06 08:48 | disposition home or self-care (01) ==
LOC: HO.CT 08:47
PROVIDERS: PCP Internal Medicine; Visit Provider Internal Medicine
DX: R91.1 Solitary pulmonary nodule (principal)
CPT/HCPCS: 71260; 82565; Q9967

== ENCOUNTER → 2024-09-06 08:49 | Outpatient (BNV) | payer OTHER, SELFPAY | PROVIDERS: PCP Internal Medicine; Visit Provider Radiology Diagnostic Radiology | DX: R91.8 Other nonspecific abnormal finding of lung field (principal) | CPT/HCPCS: 71260 ==

== ENCOUNTER 2024-09-07 07:41 | Outpatient (AMB) | payer OTHER, SELFPAY ==
--- NOTE | 2024-09-07 07:42 | A.OFFVIS_ITS ---
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 She is doing well with cushion stuffer concerns. Using Estrace, wants to continue. Currently sexually active. Denies any vaginal dryness or irritation. STI testing offered; she declined. Attempting to eat a healthy diet with calcium and vitamin D and stays active with exercise. Last pap smear; 2022, negative. Last mammogram; 2024. ColoGard results pending. Denies any family history of breast or ovarian. Distane FH colon cancer. [facility] Medical History History of senile atrophic vaginitis IBS (irritable bowel syndrome) Hx of migraine headaches Hypothyroid Cecal volvulus Surgical History H/O inguinal hernia repair H/O knee surgery Family History Sister Multiple sclerosis Social History Housing: House Alcohol intake: current Alcohol intake frequency: a few times a week Patient Tobacco Use Status: Never used Tobacco e-Cigarette/Vaping Use: Never Used service: No Current occupational status: employed Cognitive needs: No Hearing needs: No Vision needs: Yes Female Reproductive History Menstrual Age of Menarche: 10 Total pregnancies: 0 Date of last pap smear: 03/22/22 (neg pap and hpv) History of abnormal pap smear: Yes (12/01 ascus) Date of Mammogram: 03/26/24 (Birad 1) Review of Systems Const All systems reviewed & are unremarkable except as noted in HPI and below Reports as per HPI Eyes Reports no additional complaints ENT Reports no additional complaints Card Reports no additional complaints Resp Reports no additional complaints GI Reports as per HPI and Reports no additional complaints Reports as per HPI Musc Reports no additional complaints Skin/Breast Reports as per HPI Neuro Reports no additional complaints Psych Reports no additional complaints Endo Reports no additional complaints Tom/Lymph Reports no additional complaints Aller/Immun Reports no additional complaints Physical Exam Vital Signs: Last Vital Signs BP 100/64 09/07/24 07:43 BMI result Body Mass Index 17.2 Const General: cooperative, healthy appearing, no acute distress, well developed and alert Orientation/consciousness: patient oriented x3 HEENT Head: Yes normal to inspection Eyes General: appearance normal, both eyes and all related structures Neck Neck: Yes normal visual inspection Thyroid: Thyroid normal Chest Chest palpation & inspection: normal inspection of the chest and other (no puckering, dimpling, peau de orange, retraction, discharge, masses) Breast/axilla inspection: normal inspection of the breasts Breast/axilla palpation: normal palpation of the breasts Resp Effort & Inspection: normal respiratory effort GI Inspection: Yes normal to inspection and Yes scar Palpation (GI): Soft to palpation Rectal Exam - Female: deferred General: Yes bladder normal to palpation External Female Exam: normal external appearance and normal appearance of the urethra Speculum Exam - Vagina: normal appearance of the vagina, normal palpation and normal vaginal discharge Speculum Exam - Cervix: normal appearance of the cervix and normal palpation Bimanual exam- vagina & uterus: normal bimanual exam, normal palpation, uterine size normal, bladder normal to palpation, normal palpation and non-tender Bimanual Exam- Adnexa, other: no masses Skin General skin exam: no rashes or lesions noted Rashes: no rashes Neuro General: patient oriented x3 Cognition (Neuro): normal cognition Extrem General: Yes normal to inspection Psych Attitude: cooperative Thought process: Normal thought process present Assessment & Plan Assessment & Plan (1) Encounter for well woman exam with routine gynecological exam: Code(s): Z01.419 - Encounter for gynecological examination (general) (routine) without abnormal findings Category: Medical Plan: Discussed: Current recommendations for pap smears per ASCCP guidelines. Breast awareness, periodic self breast exams and yearly mammogram. Maintain a healthy lifestyle, well balanced diet including Calcium 1,200 mg and Vitamin D 600 IU daily, and routine exercise. Contact the office with any postmenopausal bleeding. Patient verbalizes understanding and agrees to the plan of care. She was given opportunity to ask questions and all questions were answered to the best of my ability. RTO in 1 year for annual cushion stuffer exam. This note is constructed using voice recognition software. While every effort has been made to ensure accuracy, conductor and engineer errors may have been included. (2) History of senile atrophic vaginitis: Code(s): Z87.42 - Personal history of other diseases of the female genital tract Category: Medical Plan Continue with the Estrace inform to continue to monitor self-breast exam and report any abnormal findings promptly. Mammogram yearly. The patient expressed understanding and agreement with the plan of care. All of her questions and concerns were addressed to the best of my ability. Medications: Changed From estradiol 0.01%(0.1mg/gram) 1 g vaginal 2XW 90 days 42.5 grams 0RF To estradiol 0.01%(0.1mg/gram) Use as directed intravaginally twice a week. 1 g vaginal 2XW 42.5 grams 2RF 90 days Coding Level of Care Code Est Pt Prev Care 40-64y(47530) Diagnoses Encounter for well woman exam with routine gynecological exam Z01.419 History of senile atrophic vaginitis Z87.42
[2024-09-07 07:43] VITALS: BP 100/64; BMI 17.2
== END 2024-09-07 08:13 | disposition home or self-care (01) ==
LOC: HO.HWS 07:41
PROVIDERS: PCP Internal Medicine; Visit Provider Advanced Practice Midwife
DX: Z01.419 Encounter for gynecological examination (general) (routine) without abnormal findings (principal); Z87.42 Personal history of other diseases of the female genital tract
CPT/HCPCS: 99396; 99459

== ENCOUNTER 2024-10-13 07:55 | Outpatient (REF) | payer OTHER, SELFPAY ==
[2024-10-13 08:05] LABS: MANUAL DIFF FLAG NO
[2024-10-13 08:51] LABS: Hematocrit 42.1 % (37.0-47.0); Hemoglobin 13.9 g/dl (12.0-16.0); Imm Gran Abs Auto 0.01 X10*3/uL (0.00-0.03); Imm Gran Pct Auto 0.2 % (0.0-0.4); Lymphocytes Absolute Auto 1.8 X10*3/uL (1.2-4.9); Mean Corpuscular HGB Conc 33.0 g/dl (31.0-35.0); Mean Corpuscular Hemoglobin 29.4 pg (27.0-33.0); Mean Corpuscular Volume 89.0 fL (80.0-98.0); NRBC Abs Auto 0.000 X10*3/uL (0.0-0.012); NRBC Pct Auto 0.0 /100WBC (0.0-0.2); Platelet Count 194 X10*3/uL (160-400); Red Blood Count 4.73 X10*6/uL (4.20-5.50); White Blood Count 5.6 X10*3/uL (4.8-10.8)
[2024-10-13 09:38] LABS: Alanine Aminotransferase 19 U/L (0-31); Albumin Level 4.5 g/dL (3.5-5.0); Alkaline Phosphatase 88 U/L (39-117); Anion Gap 11 (12-20); Aspartate Amino Transferase 28 U/L (5-31); Blood Urea Nitrogen 16 mg/dL (9-16); Calcium 10.2 mg/dL (8.4-10.2); Carbon Dioxide 27 mmol/L (22-29); Chloride 106 mmol/L (96-108); Cholesterol 168 mg/dL (<200); Estimated Glomerular Filt Rate > 60; HDL Cholesterol 79 mg/dL (>40); Potassium 4.6 mmol/L (3.3-5.1); Sodium 139 mmol/L (135-145); Total Protein 7.5 g/dL (6.5-8.0); Triglycerides 56 mg/dL (<150)
[2024-10-13 10:03] LABS: Vitamin B12 553 pg/mL (200-900)
[2024-10-17 17:13] LABS: Vitamin D 25-OH, D2 <4 ng/mL; Vitamin D 25-OH, D3 30 ng/mL; Vitamin D 25-OH, Total 30 ng/mL (30-100)
== END 2024-10-13 07:56 | disposition home or self-care (01) ==
LOC: HO.LAB 07:55
PROVIDERS: PCP Internal Medicine; Visit Provider Internal Medicine
DX: Z00.01 Encounter for general adult medical examination with abnormal findings (principal); E03.8 Other specified hypothyroidism; G43.919 Migraine, unspecified, intractable, without status migrainosus; Z83.49 Family history of other endocrine, nutritional and metabolic diseases
CPT/HCPCS: 36415; 80053; 80061; 82103; 82306; 82607; 84443; 85025

== ENCOUNTER 2024-10-21 07:32 | Outpatient (REF) | payer OTHER, SELFPAY ==
--- NOTE | 2024-10-21 07:56 | PFT_ITS ---
Flows: FEV1: 88 % of predicted at 2.02 L FVC: 98 % of predicted at 2.85 L FEV1/FVC: 71 % Bronchodilator response: Present in small to medium airways only Volumes: Total lung capacity: 117 % of predicted at 5.56 L Residual volume: 167 % of predicted at 2.72 L Slow vital capacity: 91 % of predicted at 2.85 L Expiratory reserve volume: 133 % of predicted at 1.00 L Diffusion capacity: Mildly decreased, corrects to normal after adjustment for alveolar ventilation. Impression: No obstructive or restrictive ventilatory defect. Bronchodilator response is present in small to medium airways only. Increased residual volume suggests air trapping. Decreased diffusion capacity suggests emphysema. MTDD
[2024-10-21 08:44] VITALS: PULSE 79; O2SAT 100
== END 2024-10-21 07:33 | disposition home or self-care (01) ==
LOC: HO.RESP 07:32
PROVIDERS: PCP Internal Medicine; Visit Provider Internal Medicine
DX: J44.9 Chronic obstructive pulmonary disease, unspecified (principal); Z82.5 Family history of asthma and other chronic lower respiratory diseases; Z83.6 Family history of other diseases of the respiratory system
CPT/HCPCS: 94010; 94640; 94727; 94729

== ENCOUNTER → 2024-10-21 07:56 | Outpatient (BNV) | payer OTHER, SELFPAY | PROVIDERS: PCP Internal Medicine; Visit Provider Internal Medicine Pulmonary Disease | DX: J44.9 Chronic obstructive pulmonary disease, unspecified (principal) | CPT/HCPCS: 94060; 94727; 94729 ==

== ENCOUNTER 2024-10-26 09:10 | Outpatient (REF) | payer OTHER, SELFPAY ==
[2024-10-28 23:43] LABS: Class Alternaria alternata 0/1; Class Aspergillus fumigatus 0; Class Bermuda Grass 0; Class Birch 0; Class Cat Dander 0; Class Cladosporium herbarum 0; Class Cockroach 0/1; Class Common Ragweed 0/1; Class Cottonwood 0; Class Derm. pterony 2; Class Dermatophagoides farinae 2; Class Dog Dander 0; Class Elm 0; Class Maple Box Elder 0; Class Mountain Cedar 0; Class Mouse Urine Protein 0; Class Mugwort 0; Class Oak 0; Class Penicillium crysogenum 0; Class Rough Pigweed 0; Class Sheep Sorrel 0; Class Sycamore 0; Class Timothy Grass 0; Class Walnut Tree 0; Class White Ash 0; Class White Mulberry 0; D002 - IgE D farinae 0.85 kU/L; E001 - IgE Cat Dander <0.10 kU/L; E005 - IgE Dog Dander <0.10 kU/L; G006 - IgE Timothy Grass <0.10 kU/L; I006-IgE Cockroach, German 0.20 kU/L; M002 - IgE Cladosporium herbar <0.10 kU/L; M003 - IgE Aspergillus fumigat <0.10 kU/L; M006 - IgE Alternaria alternat 0.22 kU/L; T001 IgE Maple/Box Elder <0.10 kU/L; T006 - IgE Cedar, Mountain <0.10 kU/L; T007 - IgE Oak, White <0.10 kU/L; T008 IgE Elm, American <0.10 kU/L; T010 - IgE Walnut <0.10 kU/L; T011 - IgE Maple Leaf Sycamore <0.10 kU/L; T014 - IgE Cottonwood <0.10 kU/L; T015 - IgE Ash, White <0.10 kU/L; T070 - IgE White Mulberry <0.10 kU/L; W001 - IgE Ragweed, Short 0.10 kU/L; W006 - IgE Mugwort <0.10 kU/L; W014 IgE Pigweed, Common <0.10 kU/L; W018 IgE Sheep Sorrel <0.10 kU/L
[2024-10-29 08:30] LABS: Antibody to SS-A Antigen <1.0 NEG AI (<1.0 NEG); Antibody to SS-B Antigen <1.0 NEG AI (<1.0 NEG)
[2024-10-29 09:38] LABS: Anti Nuclear Antibody Screen NEGATIVE (NEGATIVE)
[2024-11-05 12:08] LABS: Asperg fumigatus Precip Abs NEGATIVE (NEGATIVE); Micropoly faeni Abs NEGATIVE (NEGATIVE); Saccharo pora viridis Abs NEGATIVE (NEGATIVE); Thermo candidus Abs NEGATIVE (NEGATIVE)
== END 2024-10-26 09:11 | disposition home or self-care (01) ==
LOC: HO.WFDLDS 09:10
PROVIDERS: PCP Internal Medicine; Referring Provider Internal Medicine; Visit Provider Nurse Practitioner Family
DX: R93.89 Abnormal findings on diagnostic imaging of other specified body structures (principal); J44.9 Chronic obstructive pulmonary disease, unspecified; R91.1 Solitary pulmonary nodule; Z91.09 Other allergy status, other than to drugs and biological substances; Z01.84 Encounter for antibody response examination; Z87.891 Personal history of nicotine dependence
CPT/HCPCS: 36415; 82785; 86003; 86038; 86200; 86225; 86235; 86331; 86431; 86606; 86609

== ENCOUNTER 2024-10-26 09:10 | Outpatient (AMB) | payer OTHER, SELFPAY ==
--- NOTE | 2024-10-26 09:17 | A.OFFVIS_ITS ---
Vital Signs 10/26/24 09:18 Height 5 ft 2 in Weight 92 lb 6 oz BMI 16.9 BP 108/72 Blood Pressure Location Rt brachial Position Sitting Pulse 79 Pulse Source Pulse Oximeter Pulse Oximetry (%) 98 Oxygen Delivery Method Room Air Intake Visit Reasons: COPD, Solitary pulm nodule Allergies LOBSTER Allergy (Intermediate, Uncoded 10/26/24 09:21) HIVES-TACTILE EXPOSURE lobster juice Allergy (Unknown, Uncoded 10/26/24 09:21) hives Lobster juice Adverse Reaction (Unknown, Uncoded 10/26/24 09:21) hives HPI HPI COPD, Solitary pulm nodule: Details: Marychuy is a pleasant 59-year-old former smoker, with no significant past medical history. She was referred by PCP for further management of COPD as well as incidental finding of pulmonary nodule. She had chest x-ray on 07/30 which revealed possible nodular density of right upper lobe and son for chest CT which revealed numerous nodules within the bilateral lungs with an appearance most suggestive of an inflammatory process, largest 8mm. She expresses concerns about her respiratory health due to a significant family history of emphysema and other pulmonary conditions. She reports a family history of emphysema, with her grandparents and mother having from the condition, and her father and sister showing emphysemic changes. Her father also has interstitial lung disease, and there is a family history of Alpha-1 antitrypsin deficiency, although she is unsure of specific diagnoses within the family. The patient has not experienced classic respiratory symptoms such as wheezing or shortness of breath but reports a persistent sensation of lung awareness and a dry cough triggered by certain scents and smoke exposure. She denies any history of asthma or recurrent respiratory infections, although colds tend to progress to her chest. The patient lives in an old house with mold and mildew, which may contribute to her respiratory symptoms. She has been exposed to various environmental factors, including secondhand smoke and potential occupational exposures, although she denies any significant occupational hazards. The patient maintains an active lifestyle, engaging in gardening and other physical activities, which she believes helps manage her weight and overall health. She has a stable weight history, with minor fluctuations over the years, and denies any significant weight loss or gain recently. Her medical history includes Zion's disease, and she is monitored for glaucoma and cataracts, with regular ophthalmology visits. PFSH Medical History History of senile atrophic vaginitis IBS (irritable bowel syndrome) Hx of migraine headaches Hypothyroid Cecal volvulus Surgical History H/O inguinal hernia repair H/O knee surgery Family History Sister Multiple sclerosis Social History Housing: House Alcohol intake: current Alcohol intake frequency: a few times a week Patient Tobacco Use Status: Never used Tobacco e-Cigarette/Vaping Use: Never Used service: No Current occupational status: employed Cognitive needs: No Hearing needs: No Vision needs: Yes Female Reproductive History Menstrual Age of Menarche: 10 Review of Systems Const Denies chills, Denies excessive sweating, Denies fever(s), Denies headache(s) and Denies night sweats Eyes Denies dry eyes, Denies irritation and Denies itchy eyes ENT Reports Normal hearing present, Denies headache(s), Denies nasal congestion, Denies nasal discharge, Denies post nasal drip and Denies sore throat Card Denies chest pain, Denies chest pain at rest, Denies chest pain with activity, Denies claudication, Denies leg edema, Denies orthopnea and Denies paroxysmal nocturnal dyspnea Resp Denies chest congestion, Denies excessive phlegm production, Denies pain on inspiration, Denies pain with cough, Denies stridor and Denies wheezing Musc Denies myalgias Neuro Reports Normal hearing present and Denies headache(s) Endo Denies excessive sweating Tom/Lymph Denies lymphadenopathy Aller/Immun Denies itchy eyes, Denies seasonal rhinorrhea and Denies wheezing Physical Exam Vital Signs: Last Vital Signs Pulse 79 10/26/24 09:18 BP 108/72 10/26/24 09:18 Pulse Ox 98 10/26/24 09:18 Oxygen Delivery Method Room Air 10/26/24 09:18 BMI result Body Mass Index 16.9 Const General: cooperative, healthy appearing, comfortable, no acute distress and [place] rt Nutritional Appearance: thin Orientation/consciousness: patient oriented x3 Limitations: no limitations HEENT Head: Yes normal to inspection, Yes normocephalic and Yes atraumatic Ears: hearing grossly normal bilaterally and external ears normal Eyes General: appearance normal, both eyes and all related structures Eyelids: Yes eyelids normal Sclerae: sclerae normal EOM: EOMs intact bilaterally Neck Neck: Yes normal visual inspection and Yes no lymphadenopathy Lymphatic: no lymphadenopathy noted Chest Chest palpation & inspection: normal inspection of the chest Resp Effort & Inspection: normal respiratory effort, able to speak in complete sentences, no audible wheezes, no cough, no stridor, not tachypneic, no tripod positioning and no use of accessory muscles Auscultation: clear to auscultation bilaterally Cardio Jugular venous distension: no JVD Rate: regular rate Rhythm: regular rhythm Skin Other: warm, dry General skin exam: no rashes or lesions noted Neuro General: patient oriented x3 Cranial nerves: Yes Normal hearing present Cognition (Neuro): normal cognition Gait exam (Neuro): Normal gait present Extrem General: Yes normal to inspection, Yes capillary refill normal, Yes no clubbing, cyanosis or edema and Yes no pedal edema Psych Appearance: grossly normal and well kempt Speech and movement: Normal speech and movement present and Clear speech present Affect: normal affect Attitude: cooperative Thought process: Normal thought process present Thought content: Normal thought content present Insight: Good insight present (Psych) Judgement: Good judgement present (Psych) Results Reviewed Results Reviewed: [address] [address] [address] Scan Report Signed Patient: Marychuy Cabrera MR#: [id number] : 1965 Acct:[id number] Age/Sex: 59 / F ADM Date: 09/06/24 Loc: HO.CT Attending Dr: Elinor Ch MD Ordering Physician: Elinor Ch MD Date of Service: 09/06/24 Procedure(s): CT chest w IV con Accession Number(s): [id number] cc: Elinor Ch MD~ Report Number: [id number]: Total DLP = 58.00 mGy-cm CLINICAL HISTORY: R91.1 - Solitary pulmonary nodule CT chest with contrast Comparison: CR/SR - XR CHEST 2V - 07/30/24 11:06 EDT Findings: The heart size is normal. The visualized thyroid and mediastinum are unremarkable. There are clusters of nodules present within the bilateral upper lobes, lingula, right middle lobe and right lower lobe. Findings are most pronounced at the level of the right upper lobe. Nodules measure up to 8 mm in size (right upper lobe series 4, image 67). Solitary nodule within the left lower lobe measuring 6 mm in size (series 4, image 110 ). No consolidation or pleural effusion. The visualized upper abdomen is unremarkable. The bones are intact. IMPRESSION: There are numerous nodules within the bilateral lungs with an appearance most suggestive of an inflammatory process. Recommend CT follow-up in 3-6 months. This document has been electronically signed by: Colette Perdomo MD on 09/07/2024 15:32:15 Dictated By: Colette Perdomo MD Signed By: <Electronically signed by Colette Perdomo MD in OV> 09/07/24 1532 DD/ 1532 TD/TT: 09/07/24 1532 Delivery Driver/Customer Service: Assessment & Plan Assessment & Plan (1) Abnormal chest CT: Code(s): R93.89 - Abnormal findings on diagnostic imaging of other specified body structures Category: Medical (2) COPD (chronic obstructive pulmonary disease): Code(s): J44.9 - Chronic obstructive pulmonary disease, unspecified Category: Medical Qualifiers: COPD type: unspecified COPD Qualified Code(s): J44.9 - Chronic obstructive pulmonary disease, unspecified (3) Family history of emphysema: Code(s): Z82.5 - Family history of asthma and other chronic lower respiratory diseases Category: Medical (4) Lung nodule, solitary: Code(s): R91.1 - Solitary pulmonary nodule Category: Medical Plan The plan includes conducting a series of laboratory tests to investigate potential underlying autoimmune conditions and hypersensitivity pneumonitis due to mold exposure. A routine allergy test, including molds, will be performed to identify any specific allergens contributing to the patient's symptoms. The patient will be prescribed a daily inhaler, likely containing an inhaled steroid and long-acting albuterol, to manage potential asthma symptoms and reduce airway inflammation as PFT revealed significant air trapping and slightly decreased DLCO, suggestive of asthma/COPD however no significant obstructive defect identified. A follow-up CT chest will be scheduled for three months to monitor any changes in the lungs, particularly regarding the nodules observed in the initial scan. The patient is advised to maintain her active lifestyle and monitor any changes in symptoms, particularly in response to the inhaler. PCP sent for alpha 1 testing and WNL. All questions were answered and patient is in agreement of plan. Will follow up to review results or sooner if needed. Orders: Orders Resp Allergy Profile Region I 10/26/24 Z91.09 - Other allergy status, other than to drugs and biological substances Cyclic Citrullinated Peptide 10/26/24 R93.89 - Abnormal findings on diagnostic imaging of other specified body structures Scleroderma 70 Antibody 10/26/24 R93.89 - Abnormal findings on diagnostic imaging of other specified body structures Sjogren's Antibodies 10/26/24 R93.89 - Abnormal findings on diagnostic imaging of other specified body structures Immunoglobulin E 10/26/24 Z91.09 - Other allergy status, other than to drugs and biological substances CT chest wo IV con 4 Weeks R91.1 - Solitary pulmonary nodule JESSEE Reflex Titer and Pattern 10/26/24 R93.89 - Abnormal findings on diagnostic imaging of other specified body structures Rheumatoid Factor 10/26/24 R93.89 - Abnormal findings on diagnostic imaging of other specified body structures Hypersensitive Pneumonitis Prf 10/26/24 R93.89 - Abnormal findings on diagnostic imaging of other specified body structures Anti DNA DS Antibody 10/26/24 R93.89 - Abnormal findings on diagnostic imaging of other specified body structures Medications: New fluticasone furoate-vilanterol 100-25 mcg/dose (Breo Ellipta) 1 inh inhalation DAILY 60 ea 3RF Coding Level of Care Code New Pt Level 4 (00997) Complex EM visit Add On G2211 Diagnoses Abnormal chest CT R93.89 Chronic obstructive pulmonary disease, unspecified COPD type J44.9 COPD type: unspecified COPD Family history of emphysema Z82.5 Lung nodule, solitary R91.1
[2024-10-26 09:18] VITALS: BP 108/72; PULSE 79; O2SAT 98; BMI 16.9
== END 2024-10-26 10:08 | disposition home or self-care (01) ==
LOC: HO.HPSW 09:10
PROVIDERS: PCP Internal Medicine; Referring Provider Internal Medicine; Visit Provider Nurse Practitioner Family
DX: R93.89 Abnormal findings on diagnostic imaging of other specified body structures (principal); J44.9 Chronic obstructive pulmonary disease, unspecified; Z82.5 Family history of asthma and other chronic lower respiratory diseases; R91.1 Solitary pulmonary nodule
CPT/HCPCS: 99204; G2211

== ENCOUNTER 2025-02-25 08:36 | Outpatient (AMB) | payer OTHER, SELFPAY ==
[2025-02-25 08:36] VITALS: BP 106/72; PULSE 79; O2SAT 98; BMI 17.1
--- NOTE | 2025-02-25 08:36 | A.OFFPC_ITS ---
Vital Signs 02/25/25 08:36 Height 5 ft 2 in Weight 93 lb 4 oz BMI 17.1 BP 106/72 Blood Pressure Location Lt brachial Position Sitting Pulse 79 Pulse Source Pulse Oximeter Pulse Oximetry (%) 98 Intake Visit Reasons: 6m f/u reschedule from 01/28 Allergies LOBSTER Allergy (Intermediate, Uncoded 02/25/25 08:36) HIVES-TACTILE EXPOSURE lobster juice Allergy (Unknown, Uncoded 02/25/25 08:36) hives Lobster juice Adverse Reaction (Unknown, Uncoded 02/25/25 08:36) hives Medication List - Last Reconciled 02/25/25 by Elinor Ch MD caffeine 100 mg PO BID PRN cyclobenzaprine 5 mg PO ONCE PRN 30 days estradiol 0.01%(0.1mg/gram) 1 g vaginal 2XW 90 days fluticasone furoate-vilanterol 100-25 mcg/dose (Breo Ellipta) 1 inh inhalation DAILY fluticasone propion-salmeterol 115-21 mcg/actuation (Advair HFA) 2 puffs inhalation Q12H ibuprofen 100 mg PO Q6H PRN levothyroxine 100 mcg PO DAILY 90 days sumatriptan succinate 25 mg PO DAILY PRN 30 days Tobacco use date assessed: 07/30/24 Dental Screening Dental Screen Date: 07/30/24 HPI HPI Comments History of Present Illness Details History of Present Illness The patient is a 59-year-old female presenting for a six-month follow-up appointment. Emphysema and Asthma: - The patient was diagnosed with emphyse ma and asthma by a rice milling supervisor, which is consistent with her family history. - A CT scan in October showed numerous bi lateral lung nodules, suggestive of an inflammatory process, for which a follow-up CT in 3-6 months was recommended. - The rice milling supervisor prescribed an oral s teroid, but the patient reported it worsened her headaches, so she is now trying Advair. - The patient denies feeling short of br eath but experiences moments where her breath catches. - She underwent a pulmonary function osvaldo t. - The patient has an appointment with [facility] rice milling supervisor in March and needs to schedule the follow-up CT scan, which she previously canceled due to adverse effects from oral steroids. Chronic Migraine: - The patient has a history of migraines for years. - She reports that taking oral steroids for her lung condition made her headaches worse, leading to an episode of severe headache with vomiting. - Headaches can be triggered by changes in atmospheric pressure, such as rain, and she sometimes wakes up with a mild headache. - She manages her headaches with a combi nation of fluids, food, caffeine, ibuprofen, and sumatriptan (Imitrex) as a last resort. - Past trials of Amerge and propranolol for migraine prevention were unsuccessful, with propranolol causing significant side effects. - She has not tried amitriptyline for pr evention. Hearing Loss: - The patient is concerned that long-ter m ibuprofen use is damaging her hearing, which she reports is worsening every year with an awful amount of noise in her ears. - She has been taking ibuprofen for 20-3 0 years for various issues, including back pain and headaches. - She experiences difficulty hearing rowena dents in her large classroom, hearing on the phone, and discerning certain voice frequencies, particularly with more background noise. - An audiology evaluation several years ago recommended hearing aids, but she did not get them due to cost. Chronic Pain: - The patient has a history of back inju ry on both sides from years ago, for which she takes ibuprofen. - She reports that Tylenol has never bee n effective for her pain, including headaches. Medical History: - Emphysema - Asthma - Chronic migraines - Hearing loss, progressive - Chronic back pain from a past injury - History of using Q-tips in ears, but h as stopped. 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 - Caffeine: Uses caffeine to help manage headaches. Family History: - Emphysema and asthma - Hereditary hearing problem related to a soft ossicular bone, affecting her mother and sister who required surgery. Diagnostic Results: - CT scan (October): Showed numerous bila teral lung nodules, suggestive of an inflammatory process. - Pulmonary function test: Completed - Laboratory tests: Last performed in [facility] Medical History History of senile atrophic vaginitis IBS (irritable bowel syndrome) Hx of migraine headaches Hypothyroid Cecal volvulus Surgical History H/O inguinal hernia repair H/O knee surgery Family History Sister Multiple sclerosis Social History Housing: House Alcohol intake: current Alcohol intake frequency: a few times a week Patient Tobacco Use Status: Never used Tobacco e-Cigarette/Vaping Use: Never Used service: No Current occupational status: employed Cognitive needs: No Hearing needs: No Vision needs: Yes Female Reproductive History Menstrual Age of Menarche: 10 Questionnaire Thrive Questionnaire Date Thrive assessed: 07/30/24 SONIA-7 AMB Questionnaire SONIA-7 Date SONIA - 7 assessed: 07/30/24 Source: Developed by Drs. John Yancey, Katerina Almaguer, Phil Brooks and colleagues, with an educational arleen from [employer]. Review of Systems Narrative Review of Systems - General: No fever no chills - Neurological: No headaches no dizziness - Ear nose throat: No sore throat no hearing difficulty no ear pain - Cardiovascular: No syncope, no chest pain, no palpitations - Gastrointestinal: No nausea vomiting or diarrhea - Endocrine: No polyuria polydipsia no heat intolerance - Genitourinary: No dysuria , no blood in urine Physical exam (Primary Care) Vital Signs: Last Vital Signs Pulse 79 02/25/25 08:36 BP 106/72 02/25/25 08:36 Pulse Ox 98 02/25/25 08:36 BMI result Body Mass Index 17.1 Tobacco/Smoking Status: Tobacco use Status Tobacco use date assessed 07/30/24 02/25/25 08:39 Patient Tobacco Use Status Never used Tobacco 02/25/25 08:39 e-Cigarette/Vaping Use Never Used 02/25/25 08:39 Thrive Assessment: Date of Thrive Assessment Date Thrive assessed 07/30/24 02/25/25 08:39 Narrative Physical Exam - General: No acute distress - HEENT: No acute findings - Neck: Supple - Respiratory system: Able to talk in full sentences, no audible wheeze - Cardiovascular: S1-S2 regular in rate and rhythm - Gastrointestinal: No pain - Extremities: No new findings - SHRIMP TRAWLER: Alert awake oriented x3 motor intact - Skin: Normal turgor Coding Level of Care Code Est Pt Level 4 (27931) Diagnoses Other specified hypothyroidism E03.8 Hypothyroidism type: other Intractable migraine without status migrainosus, unspecified migraine type G43.919 Intractability: intractable Migraine type: unspecified Status migrainosus presence: without status migrainosus Chronic obstructive pulmonary disease, unspecified COPD type J44.9 COPD type: unspecified COPD Bilateral hearing loss, unspecified hearing loss type H91.93 Hearing loss type: unspecified Laterality: bilateral Abnormal chest CT R93.89 Family history of emphysema Z82.5 Lung nodule, solitary R91.1 Chronic midline low back pain without sciatica M54.50; G89.29 Back pain laterality: midline Sciatica presence: without sciatica Assessment & Plan Assessment & Plan (1) Hypothyroidism: Code(s): E03.9 - Hypothyroidism, unspecified Category: Medical Qualifiers: Hypothyroidism type: other Qualified Code(s): E03.8 - Other specified hypothyroidism (2) Migraine headache: Code(s): G43.909 - Migraine, unspecified, not intractable, without status migrainosus Category: Medical Qualifiers: Intractability: intractable Migraine type: unspecified Status migrainosus presence: without status migrainosus Qualified Code(s): G43.919 - Migraine, unspecified, intractable, without status migrainosus (3) COPD (chronic obstructive pulmonary disease): Code(s): J44.9 - Chronic obstructive pulmonary disease, unspecified Category: Medical Qualifiers: COPD type: unspecified COPD Qualified Code(s): J44.9 - Chronic obstructive pulmonary disease, unspecified (4) Hearing deficit: Code(s): H91.90 - Unspecified hearing loss, unspecified ear Category: Medical Qualifiers: Hearing loss type: unspecified Laterality: bilateral Qualified Code(s): H91.93 - Unspecified hearing loss, bilateral (5) Abnormal chest CT: Code(s): R93.89 - Abnormal findings on diagnostic imaging of other specified body structures Category: Medical (6) Family history of emphysema: Code(s): Z82.5 - Family history of asthma and other chronic lower respiratory diseases Category: Medical (7) Lung nodule, solitary: Code(s): R91.1 - Solitary pulmonary nodule Category: Medical (8) Chronic low back pain: Code(s): M54.50 - Low back pain, unspecified; G89.29 - Other chronic pain Category: Medical Qualifiers: Back pain laterality: midline Sciatica presence: without sciatica Qualified Code(s): M54.50 - Low back pain, unspecified; G89.29 - Other chronic pain Plan Problem List - Emphysema - Asthma - Multiple pulmonary nodules - Chronic migraine - Hearing loss - Chronic back pain - Preventative care: Thyroid function monitoring. Plan - Advised the patient to stop taking ibuprofen due to concerns about progressive hearing loss. - Recommended trying Tylenol 650 mg for pain management as an alternative to i buprofen. - Offered a trial of amitriptyline for migraine prevention, with instructions for the patient to notify if she wishes to start it. - Recommended an auditory evaluation to assess the current level of hearing deficit. - An ENT consultation may be considered after the audiology test to investigate the cause of hearing loss, including potential hereditary factors. - Placed an order for lab work, including a thyroid function test, to be done non-urgently, preferably at the same time as the pre-CT labs ordered by her rice milling supervisor in March. - Advised the patient to proceed with the follow-up CT scan as recommended by her rice milling supervisor. - Follow-up scheduled for July. Orders: Orders Complete Blood Count Auto Diff Today E03.8 - Other specified hypothyroidism, G43.919 - Migraine, unspecified, intractable, without status migrainosus, H91.90 - Unspecified hearing loss, unspecified ear, J44.9 - Chronic obstructive pulmonary disease, unspecified TSH reflex Free T4 Today E03.8 - Other specified hypothyroidism, G43.919 - Migraine, unspecified, intractable, without status migrainosus, H91.90 - Unspecified hearing loss, unspecified ear, J44.9 - Chronic obstructive pulmonary disease, unspecified Comprehensive Met. Panel Today E03.8 - Other specified hypothyroidism, G43.919 - Migraine, unspecified, intractable, without status migrainosus, H91.90 - Unspecified hearing loss, unspecified ear, J44.9 - Chronic obstructive pulmonary disease, unspecified Referrals Audiology Referral H91.90 - Unspecified hearing loss, unspecified ear
== END 2025-02-25 08:46 | disposition home or self-care (01) ==
LOC: HO.HMCC 08:36
PROVIDERS: PCP Internal Medicine; Visit Provider Internal Medicine
DX: E03.8 Other specified hypothyroidism (principal); G43.919 Migraine, unspecified, intractable, without status migrainosus; J44.9 Chronic obstructive pulmonary disease, unspecified; H91.93 Unspecified hearing loss, bilateral; R93.89 Abnormal findings on diagnostic imaging of other specified body structures; Z82.5 Family history of asthma and other chronic lower respiratory diseases; R91.1 Solitary pulmonary nodule; M54.50 Low back pain, unspecified; G89.29 Other chronic pain